=== PATIENT | male | born 1975 | race Caucasian/White ===

== ENCOUNTER 2021-01-17 04:04 | Emergency (ER) | payer MEDICAID, OTHER ==
[2021-01-17] MEDS ORDERED: GI Cocktail Oral Solution 30 ML PO ONE (04:32)
[2021-01-17] MEDS ORDERED: Alum Hydrox/Mag Hydrox/Simeth 30 ML, Lidocaine 2% 15 ML PO ONE ×2 (04:35)
--- NOTE | 2021-01-17 05:02 | EDM.PDOC ---
ED HPI GENERAL MEDICAL PROBLEM - General Chief Complaint: Abdominal Pain Stated Complaint: epigastric pain Time Seen by Provider: 01/17/21 04:45 Source of Information: Reports: Patient History Limitations: Reports: No Limitations - History of Present Illness INITIAL COMMENTS - FREE TEXT/NARRATIVE: This patient is a 46 year old male that presents to the ER. Patient reports that at about 3:30am waking up with some epigastric pain. He reports burning in nature. He reports that he has had this before and its usually his anxiety. He reports he got up from bed and tried to relax, but the epigastric burning was still present. Patient reports that he ate a large meal before bed with chicken and potato salad. Patient reports he also drinks hard liquor like Vodka and others about4-5 days a week and at least a pint each day he drinks. Patient reports he has a history of sleep apnea and uses his apnea machine to sleep each night. Patient denies anderson, dizziness, n, v, d, f, cough, congestion, drainage, shortness of breath, urinary/bowel changes, back pain. Patent denies cardiac history. Patient reports he just moved to [facility] from [place]. Onset: Today Onset Date: 01/17/21 Onset Time: 03:30 Location: Reports: Chest, Abdomen Quality: Reports: Burning Severity: Moderate Improves with: Reports: None Worsens with: Reports: None Associated Symptoms: Reports: Chest Pain. Denies: Confusion, Cough, cough w sputum, Diaphoresis, Fever/Chills, Headaches, Loss of Appetite, Malaise, Nausea/Vomiting, Rash, Seizure, Shortness of Breath, Syncope, Weakness Upper Abdomen Pain Score (Numeric/FACES): 4 - Related Data Allergies Allergy/AdvReac Type Severity Reaction Status Date / Time Penicillins Allergy Hives Verified 01/17/21 04:09 Home Meds: Home Meds Citalopram [Citalopram HBr] 20 mg PO DAILY 01/17/21 [History] Omeprazole 40 mg PO TENZIN #14 capsule. 01/17/21 [Rx] Pantoprazole [ProTONIX] 40 mg PO DAILY 01/17/21 [History] allopurinoL [Zyloprim] 200 mg PO DAILY 01/17/21 [History] lisinopriL [Lisinopril] 20 mg PO DAILY 01/17/21 [History] Past Medical History Cardiovascular History: Reports: Hypertension Gastrointestinal History: Reports: GERD Musculoskeletal History: Reports: Gout Psychiatric History: Reports: Anxiety Endocrine/Metabolic History: Reports: Hypothyroidism - Past Surgical History GI Surgical History: Reports: Hernia, Abdominal, Hernia, Inguinal Male Surgical History: Reports: Vasectomy Social & Family History - Family History Family Medical History: No Pertinent Family History - Tobacco Use Tobacco Use Status *Q: Never Tobacco User - Caffeine Use Caffeine Use: Reports: None - Alcohol Use Days Per Week of Alcohol Use: 4 Number of Drinks Per Day: 10 Total Drinks Per Week: 40 - Recreational Drug Use Recreational Drug Use: No ED ROS GENERAL - Review of Systems Review Of Systems: See Below Constitutional: Reports: No Symptoms HEENT: Reports: No Symptoms Respiratory: Reports: No Symptoms Cardiovascular: Reports: Chest Pain (burning sensation radiation from epigastric to central chest). Denies: Dyspnea on Exertion, Edema, Lightheadedness, Palpitations, Syncope Endocrine: Reports: No Symptoms GI/Abdominal: Reports: Abdominal Pain (burning sensation in epigsatric that radiates up central chest). Denies: Nausea, Vomiting : Reports: No Symptoms Musculoskeletal: Reports: No Symptoms Skin: Reports: No Symptoms Neurological: Reports: No Symptoms Psychiatric: Reports: No Symptoms Hematologic/Lymphatic: Reports: No Symptoms Immunologic: Reports: No Symptoms ED EXAM, GI/ABD - Physical Exam Exam: See Below Exam Limited By: No Limitations General Appearance: Alert, WD/WN, No Apparent Distress, Obese (obese, with short/obese neck stature. ) Eyes: Bilateral: Normal Appearance Ears: Normal External Exam, Normal Canal, Hearing Grossly Normal, Normal TMs Nose: Normal Inspection, Normal Mucosa, No Blood Throat/Mouth: Normal Inspection, Normal Lips, Normal Teeth, Normal Gums, Normal Oropharynx, Normal Voice, No Airway Compromise Head: Atraumatic, Normocephalic Neck: Normal Inspection, Supple, Non-Tender, Full Range of Motion Respiratory/Chest: No Respiratory Distress, Lungs Clear, Normal Breath Sounds, No Accessory Muscle Use, Chest Non-Tender Cardiovascular: Normal Peripheral Pulses, Regular Rate, Rhythm, No Edema, No Gal lop, No JVD, No Murmur, No Rub GI/Abdominal Exam: Normal Bowel Sounds, Soft, Tender (epigastric tenderness makes burning worse per patient. ), Other (Unable to identify organs and abominal landmarks due to obesity) Extremities: Normal Inspection, Non-Tender, No Pedal Edema, Normal Capillary Refill Neurological: Alert, Oriented, Normal Cognition, No Motor/Sensory Deficits Psychiatric: Normal Affect, Normal Mood Skin Exam: Warm, Dry, Intact, Normal Color, No Rash Lymphatic: No Adenopathy #1 Interpretation EKG Date: 01/17/21 Time: 05:06 Rate (Beats/Min): 96 Comparison: NA - No Prior EKG EKG Interpretation Comments: EKG attempted multiple times by RN. Near unreadable EKG. Best EKG can read leads V4, V5, V6. From what I can see, I do not see an ST Elevation Stemi. #2 Interpretation EKG Date: 01/17/21 Time: 05:29 Rhythm: NSR Rate (Beats/Min): 92 ST-T: Normal EKG Interpretation Comments: Repeated EKG, better quality. No stemi. Course - Vital Signs Last Recorded V/S: Last Vital Signs Temp 96.8 F L 01/17/21 04:06 Pulse 108 H 01/17/21 04:06 Resp 18 01/17/21 04:06 BP 126/76 01/17/21 04:06 Pulse Ox 96 01/17/21 04:06 - Orders/Labs/Meds Orders: Active Orders 24 hr Category Date Time Status EKG Documentation Completion [RC] STAT Care 01/17/21 04:54 Active Abdomen Pelvis wo Cont [CT] Stat Exams 01/17/21 05:33 Taken Chest 1V Frontal [CR] Stat Exams 01/17/21 05:21 Taken Sodium Chloride 0.9% [Normal Saline] 1,000 ml Med 01/17/21 07:35 Active IV ASDIRECTED Medication Orders Sodium Chloride (Normal Saline) 1,000 mls @ 150 mls/hr IV ASDIRECTED ACOSTA Last Admin: 01/17/21 08:03 Dose: 150 mls/hr Documented by: JENNIFER Labs: Laboratory Tests 01/17/21 01/17/21 01/17/21 Range/Units 05:05 05:05 05:05 WBC 13.6 H (5.0-10.0) 10^3/uL RBC 4.31 L (4.50-6.00) 10^6/uL Hgb 13.9 L (14.0-18.0) g/dL Hct 41.7 (40.0-54.0) % MCV 96.8 H (82.0-94.0) fL MCH 32.3 H (27.0-32.0) pg MCHC 33.3 (33.0-38.0) g/dL RDW Coeff of Erica 15.8 H (11.0-15.0) % Plt Count 204 (150-400) 10^3/uL Neut % (Auto) 77.9 (35-85) % Lymph % (Auto) 10.5 (10-55) % [place] % (Auto) 10.5 (0-16) % Eos % (Auto) 0.7 (0-5) % Baso % (Auto) 0.4 (0-3) % Neut # (Auto) 10.57 H (1.80-7.00) 10^3/uL Lymph # (Auto) 1.43 (1.00-4.80) 10^3/uL [place] # (Auto) 1.43 H (0.00-0.80) 10^3/uL Eos # (Auto) 0.09 (0.00-0.45) 10^3/uL Baso # (Auto) 0.06 10^3/uL PT 11.9 (9.7-12.3) SEC INR 1.10 (0.92-1.18) Sodium 137 (136-145) mEq/L Potassium 4.1 (3.5-5.0) mEq/L Chloride 97 L (98-106) mEq/L Carbon Dioxide 26 (21-32) mmol/L BUN 16 (7-18) mg/dL Creatinine 1.8 H (0.7-1.3) mg/dL Est Cr Clr Drug Dosing 57.48 mL/min Estimated GFR (MDRD) 41 L (>=60) mL/min Glucose 137 H (75-99) mg/dL Calcium 8.5 (8.4-10.1) mg/dL Total Bilirubin 0.8 (0.0-1.0) mg/dL AST 91 H (15-37) U/L ALT 134 H (12-78) U/L Alkaline Phosphatase 95 (46-116) U/L Lactate Dehydrogenase 233 H (100-190) U/L Creatine Kinase 992 H (35-232) U/L Troponin I < 0.017 (0.00-0.06) ng/mL Total Protein 7.9 (6.4-8.2) g/dL Albumin 3.5 (3.4-5.0) g/dL Amylase 44 (25-115) U/L Lipase 60 L (73-393) U/L Urine Color (YELLOW) Urine Appearance (CLEAR) Urine pH (4.5-8.0) Ur Specific [place] (1.003-1.020) Urine Protein (NEGATIVE) mg/dL Urine Glucose (UA) (NEGATIVE) mg/dL Urine Ketones (NEGATIVE) mg/dL Urine Occult Blood (NEGATIVE) Urine Nitrite (NEGATIVE) Urine Bilirubin (NEGATIVE) Urine Urobilinogen (0.2-1.0) EU/dL Ur Leukocyte Esterase (NEGATIVE) U Hyaline Cast (Auto) (NOT SEEN) /LPF Urine RBC (0-5) /HPF Urine WBC (0-5) /HPF Ur Epithelial Cells (NOT SEEN) /HPF Amorphous Sediment (NOT SEEN) /HPF Urine Bacteria (NOT SEEN) /HPF Granular Casts (Auto) (NOT SEEN) /LPF 01/17/21 01/17/21 01/17/21 Range/Units 05:16 09:00 09:00 WBC 10.4 H (5.0-10.0) 10^3/uL RBC 3.97 L (4.50-6.00) 10^6/uL Hgb 12.8 L (14.0-18.0) g/dL Hct 38.8 L (40.0-54.0) % MCV 97.7 H (82.0-94.0) fL MCH 32.2 H (27.0-32.0) pg MCHC 33.0 (33.0-38.0) g/dL RDW Coeff of Erica 15.9 H (11.0-15.0) % Plt Count 177 (150-400) 10^3/uL Neut % (Auto) 72.4 (35-85) % Lymph % (Auto) 16.3 (10-55) % [place] % (Auto) 9.8 (0-16) % Eos % (Auto) 1.0 (0-5) % Baso % (Auto) 0.5 (0-3) % Neut # (Auto) 7.57 H (1.80-7.00) 10^3/uL Lymph # (Auto) 1.70 (1.00-4.80) 10^3/uL [place] # (Auto) 1.02 H (0.00-0.80) 10^3/uL Eos # (Auto) 0.10 (0.00-0.45) 10^3/uL Baso # (Auto) 0.05 10^3/uL PT (9.7-12.3) SEC INR (0.92-1.18) Sodium 139 (136-145) mEq/L Potassium 4.0 (3.5-5.0) mEq/L Chloride 101 (98-106) mEq/L Carbon Dioxide 26 (21-32) mmol/L BUN 15 (7-18) mg/dL Creatinine 1.5 H (0.7-1.3) mg/dL Est Cr Clr Drug Dosing 68.98 mL/min Estimated GFR (MDRD) 51 L (>=60) mL/min Glucose 153 H (75-99) mg/dL Calcium 7.8 L (8.4-10.1) mg/dL Total Bilirubin (0.0-1.0) mg/dL AST (15-37) U/L ALT (12-78) U/L Alkaline Phosphatase (46-116) U/L Lactate Dehydrogenase (100-190) U/L Creatine Kinase (35-232) U/L Troponin I 0.019 (0.00-0.06) ng/mL Total Protein (6.4-8.2) g/dL Albumin (3.4-5.0) g/dL Amylase (25-115) U/L Lipase (73-393) U/L Urine Color Dark yellow (YELLOW) Urine Appearance Clear (CLEAR) Urine pH 5.0 (4.5-8.0) Ur Specific [place] >= 1.030 H (1.003-1.020) Urine Protein >=300 H (NEGATIVE) mg/dL Urine Glucose (UA) Negative (NEGATIVE) mg/dL Urine Ketones Trace H (NEGATIVE) mg/dL Urine Occult Blood Small H (NEGATIVE) Urine Nitrite Negative (NEGATIVE) Urine Bilirubin Small H (NEGATIVE) Urine Urobilinogen 0.2 (0.2-1.0) EU/dL Ur Leukocyte Esterase Negative (NEGATIVE) U Hyaline Cast (Auto) Moderate H (NOT SEEN) /LPF Urine RBC 0-5 (0-5) /HPF Urine WBC Not seen (0-5) /HPF Ur Epithelial Cells Few H (NOT SEEN) /HPF Amorphous Sediment Few H (NOT SEEN) /HPF Urine Bacteria Few H (NOT SEEN) /HPF Granular Casts (Auto) Few (NOT SEEN) /LPF Meds: Medications Generic Name Dose Route Start Last Admin Trade Name Freq PRN Reason Stop Dose Admin Sodium Chloride 1,000 mls @ 150 mls/hr 01/17/21 07:35 01/17/21 08:03 Normal Saline IV 150 mls/hr ASDIRECTED ACOSTA Administration Discontinued Medications Generic Name Dose Route Start Last Admin Trade Name Freq PRN Reason Stop Dose Admin Al Hydroxide/Mg Hydroxide 30 ml 01/17/21 04:32 01/17/21 06:45 Gi Cocktail Oral Solution 30 Ml PO 01/17/21 04:33 Not Given ONETIME ONE Al Hydroxide/Mg Hydroxide 30 0 ml 01/17/21 04:35 01/17/21 04:38 ml/ Lidocaine HCl 15 ml PO 01/17/21 04:36 45 ml ONETIME ONE Administration Famotidine 20 mg 01/17/21 05:28 01/17/21 05:46 Famotidine 20 Mg/2 Ml Sdv IVPUSH 01/17/21 05:29 20 mg ONETIME ONE Administration Sodium Chloride 1,000 mls @ 1,000 mls/hr 01/17/21 05:28 01/17/21 05:58 Normal Saline IV 01/17/21 06:27 1,000 mls/hr .BOLUS ONE Administration Sodium Chloride 1,000 mls @ 1,000 mls/hr 01/17/21 06:35 01/17/21 06:53 Normal Saline IV 01/17/21 07:34 1,000 mls/hr .BOLUS ONE Administration - Radiology Interpretation Free Text/Narrative:: CXR: No acute findings CT ABD/PELVIS without contrast: Hepatosplenomegaly, otherwise unremarkable. CT Results Date: 01/17/21 CT Results Time: 09:13 - Re-Assessments/Exams Free Text/Narrative Re-Assessment/Exam: 01/17/21 05:34 Patient was given GI Cocktail, he reports he pain did improve and now only a 2/10. Discussed all lab results with patient. Will CT abd/pelvis without contrast due to CR. Will extend ER, repeat troponin and CR, CBC this morning after fluids. 01/17/21 09:27 Patient reports his epigastric pain is much improved. Reviewed patient labs, his wbc has improved. His CR is also improved to 1.5. Patient not vomiting. Will discharge home, encourage to drink fluids, stop drinking ETOH. Will also prescribe omeprazole for epigastric burning and his ETOH use. Recommended he followup with pcp in clinic for possible EGD as needed. Departure - Departure Time of Disposition: 09:30 Disposition: Home, Self-Care 01 Condition: Good Clinical Impression: Renal insufficiency Abdominal pain Qualifiers: Abdominal location: epigastric Qualified Code(s): R10.13 - Epigastric pain - Discharge Information *PRESCRIPTION DRUG MONITORING PROGRAM REVIEWED*: Not Applicable *COPY OF PRESCRIPTION DRUG MONITORING REPORT IN PATIENT CALLI: Not Applicable Prescriptions: Omeprazole 40 mg PO QAM #14 capsule. Instructions: Abdominal Pain, Adult, [id number], Dehydration, Adult, [id number] Referrals: PCP,None [Primary Care Provider] - Forms: ED Department Discharge Additional Instructions: Followup with a primary care provider Return to the ER for worsening of condition or any emergent concerns Followup with a primary care provider for possible EGD if symptoms reoccur Omeprazole 40mg 1 pill once a day #14 no refill: Sent to [facility] Increase fluid intake Eliminate drinking alcohol Sepsis Event Note (ED) - Evaluation Sepsis Screening Result: No Definite Risk - Focused Exam Vital Signs: Vital Signs Temp Pulse Resp BP Pulse Ox 01/17/21 04:06 96.8 F L 108 H 18 126/76 96 - My Orders Last 24 Hours: My Active Orders 01/17/21 04:54 EKG Documentation Completion [RC] STAT 01/17/21 05:21 Chest 1V Frontal [CR] Stat 01/17/21 05:33 Abdomen Pelvis wo Cont [CT] Stat 01/17/21 07:35 Sodium Chloride 0.9% [Normal Saline] 1,000 ml IV ASDIRECTED - Assessment/Plan Last 24 Hours: My Active Orders 01/17/21 04:54 EKG Documentation Completion [RC] STAT 01/17/21 05:21 Chest 1V Frontal [CR] Stat 01/17/21 05:33 Abdomen Pelvis wo Cont [CT] Stat 01/17/21 07:35 Sodium Chloride 0.9% [Normal Saline] 1,000 ml IV ASDIRECTED Plan: PLEASE SEE RN NOTE FOR PFSH
[2021-01-17 05:25] LABS: CHLORIDE,CL 97 mEq/L (98-106); SODIUM,NA 137 mEq/L (136-145)
[2021-01-17] MEDS ORDERED: Famotidine 20 MG/2 ML SDV IVPUSH ONE (05:28)
[2021-01-17] MEDS ORDERED: Sodium Chloride 0.9% 1,000 ML IV ONE ×2 (05:28→06:35)
[2021-01-17] MEDS ORDERED: Sodium Chloride 0.9% 1,000 ML IV SCH (07:35)
== END 2021-01-17 09:50 | disposition home or self-care (01) ==
LOC: CC.ED 04:04
DX: R10.13 Epigastric pain (principal); N28.9 Disorder of kidney and ureter, unspecified; K21.9 Gastro-esophageal reflux disease without esophagitis; Z88.0 Allergy status to penicillin; Z79.899 Other long term (current) drug therapy
CPT/HCPCS: 36415; 71045; 74176; 80048; 80053; 81001; 82150; 82550; 83615; 83690; 84484; 85025; 85610; 93005; 96374; 99284; A9270; J3490; J7030

== ENCOUNTER 2021-03-09 01:07 | Emergency (ER) | payer SELFPAY ==
--- NOTE | 2021-03-09 01:47 | EDM.PDOC ---
ED HPI GENERAL MEDICAL PROBLEM - General Chief Complaint: General Stated Complaint: "dont feel good" Time Seen by Provider: 03/09/21 01:40 Source of Information: Reports: Patient History Limitations: Reports: No Limitations - History of Present Illness INITIAL COMMENTS - FREE TEXT/NARRATIVE: Pt states that he hasn't felt well for the last 3-4 days with mid epigastric discomfort. He admits to drinking at least 6 shots of vodka with a chaser this evening. Has been taking omeprazole OTC daily as he moved here from [place] several months ago and hasn't established care locally as he has no insurance. He had this back in December and was seen in the ER for it. He is out of his pantoprazole for some time now. Points to upper abdomen as site of discomfort. Onset: Gradual Duration: Waxing/Waning Location: Reports: Abdomen Quality: Reports: Ache Associated Symptoms: Denies: Chest Pain, Nausea/Vomiting, Shortness of Breath - Related Data Allergies Allergy/AdvReac Type Severity Reaction Status Date / Time Penicillins Allergy Hives Verified 03/09/21 01:09 Home Meds: Home Meds Citalopram [Citalopram HBr] 20 mg PO DAILY 01/17/21 [History] Omeprazole 40 mg PO QAVidal #14 capsule. 01/17/21 [Rx] Pantoprazole [ProTONIX] 40 mg PO DAILY 01/17/21 [History] allopurinoL [Zyloprim] 200 mg PO DAILY 01/17/21 [History] lisinopriL [Lisinopril] 20 mg PO DAILY 01/17/21 [History] Past Medical History Cardiovascular History: Reports: Hypertension Gastrointestinal History: Reports: GERD Musculoskeletal History: Reports: Gout Psychiatric History: Reports: Anxiety Endocrine/Metabolic History: Reports: Hypothyroidism - Past Surgical History GI Surgical History: Reports: Hernia, Abdominal, Hernia, Inguinal Male Surgical History: Reports: Vasectomy Social & Family History - Family History Family Medical History: No Pertinent Family History - Tobacco Use Tobacco Use Status *Q: Never Tobacco User - Caffeine Use Caffeine Use: Reports: Soda - Recreational Drug Use Recreational Drug Use: No ED ROS GENERAL - Review of Systems Review Of Systems: See Below Constitutional: Denies: Fever, Chills, Weakness HEENT: Reports: No Symptoms Respiratory: Denies: Shortness of Breath Cardiovascular: Reports: No Symptoms GI/Abdominal: Reports: Abdominal Pain, Other (heart burn). Denies: Constipation, Diarrhea, Nausea, Vomiting : Reports: No Symptoms Musculoskeletal: Reports: No Symptoms Skin: Reports: No Symptoms Neurological: Reports: No Symptoms Psychiatric: Reports: No Symptoms ED EXAM, GENERAL - Physical Exam Exam: See Below Exam Limited By: No Limitations General Appearance: Alert, WD/WN, Mild Distress Respiratory/Chest: No Respiratory Distress, Lungs Clear, Normal Breath Sounds Cardiovascular: Regular Rate, Rhythm, No Edema GI/Abdominal: Normal Bowel Sounds, Soft, Tender (midepigastric area with palpation.) Extremities: Normal Inspection Neurological: Alert, Oriented Skin Exam: Warm, Dry, Intact #1 Interpretation EKG Date: 03/09/21 Rhythm: NSR P-Wave: Present QRS: Normal ST-T: Normal Course - Vital Signs Last Recorded V/S: Last Vital Signs Temp 98.2 F 03/09/21 01:10 Pulse 100 03/09/21 01:10 Resp 18 03/09/21 01:10 BP 163/90 H 03/09/21 01:10 Pulse Ox 97 03/09/21 01:10 - Orders/Labs/Meds Orders: Active Orders 24 hr Category Date Time Status EKG 12 Lead [EK] Stat Ther 03/09/21 01:47 Ordered Labs: Laboratory Tests 03/09/21 03/09/21 03/09/21 Range/Units 01:22 01:22 01:22 WBC 6.9 (4.0-11.0) 10^3/uL RBC 4.37 L (4.50-6.00) x10^6/uL Hgb 14.1 (14.0-18.0) g/dL Hct 42.1 (42.0-52.0) % MCV 96.3 (83.0-97.0) fL MCH 32.3 H (27.0-32.0) pg MCHC 33.5 (32.0-36.0) g/dL RDW Coeff of Erica 14.5 (11.0-15.0) % Plt Count 199 (150-400) 10^3/uL Immature Gran % (Auto) 0.3 (0.0-4.9) % Neut % (Auto) 68.9 (41-71) % Lymph % (Auto) 20.3 L (24-44) % [place] % (Auto) 8.1 (0-10) % Eos % (Auto) 2.0 (0-6) % Baso % (Auto) 0.4 (0-1) % Neut # (Auto) 4.74 (1.80-8.00) x10^3/uL Lymph # (Auto) 1.40 (0.60-5.00) 10^3/uL [place] # (Auto) 0.56 (0.00-1.50) 10^3/uL Eos # (Auto) 0.14 (0.00-1.50) 10^3/uL Baso # (Auto) 0.03 (0.00-0.50) 10^3/uL Immature Gran # (Auto) 0.02 (0.00-0.49) 10^3/uL Sodium 141 (136-145) mEq/L Potassium 3.9 (3.5-5.0) mEq/L Chloride 101 (98-106) mEq/L Carbon Dioxide 29 (21-32) mmol/L BUN 3 L D (7-18) mg/dL Creatinine 1.2 (0.7-1.3) mg/dL Est Cr Clr Drug Dosing 88.78 mL/min Estimated GFR (MDRD) > 60 (>=60) mL/min Glucose 154 H (75-99) mg/dL Calcium 8.3 L (8.4-10.1) mg/dL Total Bilirubin 0.5 (0.0-1.0) mg/dL AST 170 H (15-37) U/L ALT 215 H (12-78) U/L Alkaline Phosphatase 85 (46-116) U/L Lactate Dehydrogenase (100-190) U/L Creatine Kinase (35-232) U/L Troponin I (0.00-0.06) ng/mL Total Protein 7.2 (6.4-8.2) g/dL Albumin 3.1 L (3.4-5.0) g/dL Urine Color Yellow (YELLOW) Urine Appearance Clear (CLEAR) Urine pH 6.5 (4.5-8.0) Ur Specific [place] 1.010 (1.003-1.020) Urine Protein Negative (NEGATIVE) mg/dL Urine Glucose (UA) Negative (NEGATIVE) mg/dL Urine Ketones Negative (NEGATIVE) mg/dL Urine Occult Blood Trace-intact H (NEGATIVE) Urine Nitrite Negative (NEGATIVE) Urine Bilirubin Negative (NEGATIVE) Urine Urobilinogen 0.2 (0.2-1.0) EU/dL Ur Leukocyte Esterase Negative (NEGATIVE) Urine RBC 0-5 (0-5) /HPF Urine WBC 0-5 (0-5) /HPF Ur Squamous Epith Cells Few H (NOT SEEN) /HPF 03/09/21 Range/Units 01:47 WBC (4.0-11.0) 10^3/uL RBC (4.50-6.00) x10^6/uL Hgb (14.0-18.0) g/dL Hct (42.0-52.0) % MCV (83.0-97.0) fL MCH (27.0-32.0) pg MCHC (32.0-36.0) g/dL RDW Coeff of Erica (11.0-15.0) % Plt Count (150-400) 10^3/uL Immature Gran % (Auto) (0.0-4.9) % Neut % (Auto) (41-71) % Lymph % (Auto) (24-44) % [place] % (Auto) (0-10) % Eos % (Auto) (0-6) % Baso % (Auto) (0-1) % Neut # (Auto) (1.80-8.00) x10^3/uL Lymph # (Auto) (0.60-5.00) 10^3/uL [place] # (Auto) (0.00-1.50) 10^3/uL Eos # (Auto) (0.00-1.50) 10^3/uL Baso # (Auto) (0.00-0.50) 10^3/uL Immature Gran # (Auto) (0.00-0.49) 10^3/uL Sodium (136-145) mEq/L Potassium (3.5-5.0) mEq/L Chloride (98-106) mEq/L Carbon Dioxide (21-32) mmol/L BUN (7-18) mg/dL Creatinine (0.7-1.3) mg/dL Est Cr Clr Drug Dosing mL/min Estimated GFR (MDRD) (>=60) mL/min Glucose (75-99) mg/dL Calcium (8.4-10.1) mg/dL Total Bilirubin (0.0-1.0) mg/dL AST (15-37) U/L ALT (12-78) U/L Alkaline Phosphatase (46-116) U/L Lactate Dehydrogenase 269 H (100-190) U/L Creatine Kinase 169 (35-232) U/L Troponin I 0.021 (0.00-0.06) ng/mL Total Protein (6.4-8.2) g/dL Albumin (3.4-5.0) g/dL Urine Color (YELLOW) Urine Appearance (CLEAR) Urine pH (4.5-8.0) Ur Specific [place] (1.003-1.020) Urine Protein (NEGATIVE) mg/dL Urine Glucose (UA) (NEGATIVE) mg/dL Urine Ketones (NEGATIVE) mg/dL Urine Occult Blood (NEGATIVE) Urine Nitrite (NEGATIVE) Urine Bilirubin (NEGATIVE) Urine Urobilinogen (0.2-1.0) EU/dL Ur Leukocyte Esterase (NEGATIVE) Urine RBC (0-5) /HPF Urine WBC (0-5) /HPF Ur Squamous Epith Cells (NOT SEEN) /HPF Meds: Medications Discontinued Medications Generic Name Dose Route Start Last Admin Trade Name Freq PRN Reason Stop Dose Admin Al Hydroxide/Mg Hydroxide 30 0 ml 03/09/21 02:00 03/09/21 02:10 ml/ Lidocaine HCl 15 ml PO 03/09/21 02:01 45 ml ONETIME ONE Administration - Re-Assessments/Exams Free Text/Narrative Re-Assessment/Exam: 03/09/21 02:37 Reviewed labs with pt. LFT are elevated and he states that they have in the past with his alcohol use. He reports that he has had an EGD many years ago and had some burning of the esophagus from the reflux. He has had some relief from the GI cocktail. Discussed that he needs to establish care somewhere and probably needs to have repeat EGD in the future. Departure - Departure Time of Disposition: 02:41 Disposition: Home, Self-Care 01 Condition: Fair Clinical Impression: Chronic GERD - Discharge Information *PRESCRIPTION DRUG MONITORING PROGRAM REVIEWED*: Not Applicable *COPY OF PRESCRIPTION DRUG MONITORING REPORT IN PATIENT CALLI: Not Applicable Forms: ED Department Discharge Additional Instructions: Take protonix in the AM Try omeprazole 20 mg twice a day until can establish care and get refills avoid alcohol and any spicy foods weight reduction may help with the refluxing recheck in the clinic if not improving or new concerns. Sepsis Event Note (ED) - Evaluation Sepsis Screening Result: No Definite Risk - Focused Exam Vital Signs: Vital Signs Temp Pulse Resp BP Pulse Ox 03/09/21 01:10 98.2 F 100 18 163/90 H 97 - Problem List & Annotations (1) Chronic GERD SNOMED Code(s): 169396582, 922697225 Code(s): K21.9 - GASTRO-ESOPHAGEAL REFLUX DISEASE WITHOUT ESOPHAGITIS Status: Acute Priority: High Current Visit: Yes (2) Abdominal pain SNOMED Code(s): 78463992 Code(s): R10.9 - UNSPECIFIED ABDOMINAL PAIN Status: Acute Priority: High Current Visit: No Qualifiers: Abdominal location: epigastric Qualified Code(s): R10.13 - Epigastric pain - Problem List Review Problem List Initiated/Reviewed/Updated: Yes - My Orders Last 24 Hours: My Active Orders 03/09/21 01:47 EKG 12 Lead [EK] Stat - Assessment/Plan Last 24 Hours: My Active Orders 03/09/21 01:47 EKG 12 Lead [EK] Stat
[2021-03-09 01:56] LABS: CHLORIDE,CL 101 mEq/L (98-106); SODIUM,NA 141 mEq/L (136-145)
[2021-03-09] MEDS ORDERED: Alum Hydrox/Mag Hydrox/Simeth 30 ML, Lidocaine 2% 15 ML PO ONE ×2 (02:00)
[2021-03-09] MEDS ORDERED: Pantoprazole 40 MG Tab.CR PO ONE (02:44)
[2021-03-09] MEDS ORDERED: Pantoprazole 40 MG Tab.CR ONE (03:11)
== END 2021-03-09 02:55 | disposition home or self-care (01) ==
LOC: CC.ED 01:07
DX: K21.9 Gastro-esophageal reflux disease without esophagitis (principal); I10 Essential (primary) hypertension; E03.9 Hypothyroidism, unspecified; M10.9 Gout, unspecified; Z79.899 Other long term (current) drug therapy; Z88.0 Allergy status to penicillin
CPT/HCPCS: 36415; 80053; 81001; 82550; 83615; 84484; 85025; 99284; A9270; 93005

== ENCOUNTER 2021-03-26 05:18 | Emergency (ER) | payer SELFPAY ==
[2021-03-26 06:04] LABS: CHLORIDE,CL 99 mEq/L (98-106); SODIUM,NA 138 mEq/L (136-145)
--- NOTE | 2021-03-26 06:05 | EDM.PDOC ---
ED HPI GENERAL MEDICAL PROBLEM - General Chief Complaint: General Stated Complaint: Abd Pain Time Seen by Provider: 03/26/21 05:50 Source of Information: Reports: Patient History Limitations: Reports: No Limitations - History of Present Illness INITIAL COMMENTS - FREE TEXT/NARRATIVE: presents to ER with complaints of lateral right sided pain that is worse when he moves, sits or twists. When he sits down the pain is worse. When he sits still the pain is better. He has not been taking his BP meds and is concerned he has liver problem as he drinks multiple shots of vodka per day. Last alcohol intack was at 2100 last evening. He relates that he just hasn't gotten around to picking his BP meds up yet. He denies any nausea with it. Onset: Gradual Location: Reports: Abdomen Associated Symptoms: Denies: Fever/Chills, Nausea/Vomiting Right Abdomen Pain Score (Numeric/FACES): 6 - Related Data Allergies Allergy/AdvReac Type Severity Reaction Status Date / Time Penicillins Allergy Hives Verified 03/26/21 05:19 Home Meds: Home Meds Omeprazole 40 mg PO QAM #14 capsule. 01/17/21 [Rx] Past Medical History Cardiovascular History: Reports: Hypertension Gastrointestinal History: Reports: GERD Musculoskeletal History: Reports: Gout Psychiatric History: Reports: Anxiety Endocrine/Metabolic History: Reports: Hypothyroidism - Past Surgical History GI Surgical History: Reports: Hernia, Abdominal, Hernia, Inguinal Male Surgical History: Reports: Vasectomy Social & Family History - Family History Family Medical History: No Pertinent Family History - Tobacco Use Tobacco Use Status *Q: Never Tobacco User Second Hand Smoke Exposure: No - Caffeine Use Caffeine Use: Reports: Soda - Alcohol Use Days Per Week of Alcohol Use: 7 Number of Drinks Per Day: 6 Total Drinks Per Week: 42 - Recreational Drug Use Recreational Drug Use: No ED ROS GENERAL - Review of Systems Review Of Systems: See Below Constitutional: Denies: Fever, Chills Respiratory: Reports: No Symptoms Cardiovascular: Reports: No Symptoms GI/Abdominal: Reports: Abdominal Pain. Denies: Black Stool, Constipation, Diarrhea Skin: Reports: Other (has multiple sores all over hs abdomen, and arms. 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 Pain is worse with movement and stretching to the left. He also states that when he sits the pain is more up under the rib cage.) Neurological: Alert, Oriented Skin Exam: Warm, Dry Course - Vital Signs Last Recorded V/S: Last Vital Signs Temp 98 F 03/26/21 05:21 Pulse 98 03/26/21 05:21 Resp 18 03/26/21 05:21 BP 157/97 H 03/26/21 06:58 Pulse Ox 20 L 03/26/21 05:21 - Orders/Labs/Meds Orders: Active Orders 24 hr Category Date Time Status Abdomen Pelvis w Cont [CT] Stat Exams 03/26/21 06:18 Taken Labs: Laboratory Tests 03/26/21 03/26/21 03/26/21 Range/Units 05:48 05:48 05:57 WBC 5.6 (4.0-11.0) 10^3/uL RBC 4.69 (4.50-6.00) x10^6/uL Hgb 15.6 (14.0-18.0) g/dL Hct 45.6 (42.0-52.0) % MCV 97.2 H (83.0-97.0) fL MCH 33.3 H (27.0-32.0) pg MCHC 34.2 (32.0-36.0) g/dL RDW Coeff of Erica 14.5 (11.0-15.0) % Plt Count 226 (150-400) 10^3/uL Immature Gran % (Auto) 0.9 (0.0-4.9) % Neut % (Auto) 71.1 H (41-71) % Lymph % (Auto) 19.8 L (24-44) % [place] % (Auto) 5.9 (0-10) % Eos % (Auto) 1.4 (0-6) % Baso % (Auto) 0.9 (0-1) % Neut # (Auto) 3.99 (1.80-8.00) x10^3/uL Lymph # (Auto) 1.11 (0.60-5.00) 10^3/uL [place] # (Auto) 0.33 (0.00-1.50) 10^3/uL Eos # (Auto) 0.08 (0.00-1.50) 10^3/uL Baso # (Auto) 0.05 (0.00-0.50) 10^3/uL Immature Gran # (Auto) 0.05 (0.00-0.49) 10^3/uL Sodium 138 (136-145) mEq/L Potassium 4.2 (3.5-5.0) mEq/L Chloride 99 (98-106) mEq/L Carbon Dioxide 21 (21-32) mmol/L BUN 8 D (7-18) mg/dL Creatinine 1.1 (0.7-1.3) mg/dL Est Cr Clr Drug Dosing 96.85 mL/min Estimated GFR (MDRD) > 60 (>=60) mL/min Glucose 106 H D (75-99) mg/dL Calcium 8.6 (8.4-10.1) mg/dL Total Bilirubin 0.8 (0.0-1.0) mg/dL AST 159 H (15-37) U/L ALT 140 H (12-78) U/L Alkaline Phosphatase 79 (46-116) U/L Total Protein 8.9 H (6.4-8.2) g/dL Albumin 4.0 (3.4-5.0) g/dL Urine Color Dark yellow (YELLOW) Urine Appearance Clear (CLEAR) Urine pH 6.0 (4.5-8.0) Ur Specific [place] >= 1.030 H (1.003-1.020) Urine Protein >=300 H (NEGATIVE) mg/dL Urine Glucose (UA) Negative (NEGATIVE) mg/dL Urine Ketones >=160 H (NEGATIVE) mg/dL Urine Occult Blood Moderate H (NEGATIVE) Urine Nitrite Negative (NEGATIVE) Urine Bilirubin Moderate H (NEGATIVE) Urine Urobilinogen 0.2 (0.2-1.0) EU/dL Ur Leukocyte Esterase Negative (NEGATIVE) Urine RBC 5-10 H (0-5) /HPF Urine WBC Not seen (0-5) /HPF Amorphous Sediment Few H (NOT SEEN) /HPF Urine Yeast Rare (NOT SEEN) /HPF Urinalysis Comment Meds: Medications Discontinued Medications Generic Name Dose Route Start Last Admin Trade Name Toby PRN Reason Stop Dose Admin Barium Sulfate 900 ml 03/26/21 07:35 03/26/21 08:54 Barium Sulfate Oral Susp 450 Ml Bottle PO 03/26/21 07:36 900 ml ONETIME ONE Administration Clonidine HCl 0.1 mg 03/26/21 08:00 Clonidine 0.1 Mg Tab PO DAILY A[place]STA Clonidine HCl 0.1 mg 03/26/21 06:13 03/26/21 06:17 Clonidine 0.1 Mg Tab PO 03/26/21 06:14 0.1 mg STAT STA Administration Iopamidol 163 ml 03/26/21 07:35 03/26/21 08:54 Iopamidol 755 Mg/Ml 200 Ml Bottle IV 03/26/21 07:36 163 ml ONETIME ONE Administration - Re-Assessments/Exams Free Text/Narrative Re-Assessment/Exam: 03/26/21 06:[address] of abdomen pelvis with contrast to evaluate the abdominal pain. Will get contrasted study. will monitor his BP while waiting. Departure - Departure Time of Disposition: 09:42 Disposition: Home, Self-Care 01 Condition: Good Clinical Impression: Musculoskeletal strain, Fatty liver due to alcoholism - Discharge Information *PRESCRIPTION DRUG MONITORING PROGRAM REVIEWED*: Not Applicable *COPY OF PRESCRIPTION DRUG MONITORING REPORT IN PATIENT CALLI: Not Applicable Instructions: Alcoholic Liver Disease, [id number] Referrals: PCP,None [Primary Care Provider] - Forms: ED Department Discharge Additional Instructions: stop drinking start your BP meds push fluids as much as possible establish care in the clinic with Dr. Tracey for health care. Return to the clinic if pain does not resolve. Sepsis Event Note (ED) - Evaluation Sepsis Screening Result: No Definite Risk - Focused Exam Vital Signs: Vital Signs Temp Pulse Resp BP BP Pulse Ox 03/26/21 06:58 157/97 H 03/26/21 06:17 154/96 H 03/26/21 05:38 155/102 H 03/26/21 05:21 98 F 98 18 160/110 H 20 L - Problem List & Annotations (1) Musculoskeletal strain SNOMED Code(s): 354936681 Code(s): T14.8XXA - OTHER INJURY OF UNSPECIFIED BODY REGION, INITIAL ENCOUNTER Status: Acute Priority: High Current Visit: Yes (2) Fatty liver due to alcoholism SNOMED Code(s): 57274368 Code(s): K70.0 - ALCOHOLIC FATTY LIVER Status: Acute Priority: High Current Visit: Yes - Problem List Review Problem List Initiated/Reviewed/Updated: Yes - My Orders Last 24 Hours: My Active Orders 03/26/21 06:18 Abdomen Pelvis w Cont [CT] Stat - Assessment/Plan Last 24 Hours: My Active Orders 03/26/21 06:18 Abdomen Pelvis w Cont [CT] Stat
[2021-03-26] MEDS ORDERED: cloNIDine 0.1 MG Tab PO STA (06:13)
[2021-03-26] MEDS ORDERED: Iopamidol 755 Mg/ML 200 ML Bottle IV ONE (07:35)
[2021-03-26] MEDS ORDERED: Barium Sulfate Oral Susp 450 ML Bottle PO ONE (07:35)
[2021-03-26] MEDS ORDERED: cloNIDine 0.1 MG Tab PO SCH (08:00)
== END 2021-03-26 09:55 | disposition home or self-care (01) ==
LOC: CC.ED 05:18
DX: S39.011A Strain of muscle, fascia and tendon of abdomen, initial encounter (principal); K70.0 Alcoholic fatty liver; I10 Essential (primary) hypertension; Z88.0 Allergy status to penicillin
CPT/HCPCS: 36415; 74177; 80053; 81001; 85025; 99284-25; A9270-GY; Q9967

== ENCOUNTER 2021-04-11 19:08 | Emergency (ER) | payer SELFPAY ==
--- NOTE | 2021-04-11 19:38 | EDM.PDOC ---
ED HPI GENERAL MEDICAL PROBLEM - General Chief Complaint: Abdominal Pain Stated Complaint: "feel full and tight in upper abdomen" Time Seen by Provider: 04/11/21 19:25 Source of Information: Reports: Patient History Limitations: Reports: No Limitations - History of Present Illness INITIAL COMMENTS - FREE TEXT/NARRATIVE: This patient is a 46 year old male that presents to the ER. Patient reports that at noon today he started having generalized abdominal pain. Patient reports it just feels bloated or like he is pushing on it. The patient reports it also goes to his epigastric area. Patient reports nausea. Patient reports that he has had this pain multiple times before. He reports that usually a GI cocktail will help the pain. Patent reports that he is a heavy drinker. He reports he drinks a lot of shots of vodka a day. Patient reports that he got off work, went home and ate two egg sandwiches, and took shots of vodka this morning. He reports then a noon waking up and having this pain. Patient reports he has never fill his HTN or GI meds. Patent reports he is supposed to take propantazole, but has not filled the script in months. Patient is noncompliant with his medications. Denies v, d, f, cough, congestion, drainage, headache, dizziness, back pain, urinary/bowel changes, fever, rashes. Onset Date: 04/11/21 Onset Time: 12:00 Location: Reports: Chest (epigastric), Abdomen Quality: Reports: Pressure Severity: Mild Improves with: Reports: None Worsens with: Reports: None Associated Symptoms: Reports: Chest Pain (epigastric), Nausea/Vomiting (nausea. Not vomiting.). Denies: Confusion, Cough, cough w sputum, Diaphoresis, Fever/Chills, Headaches, Loss of Appetite, Malaise, Rash, Seizure, Shortness of Breath, Syncope, Weakness - Related Data Allergies Allergy/AdvReac Type Severity Reaction Status Date / Time Penicillins Allergy Hives Verified 04/11/21 19:11 Home Meds: Home Meds Omeprazole 40 mg PO QAM #14 capsule. 01/17/21 [Rx] Past Medical History Cardiovascular History: Reports: Hypertension Gastrointestinal History: Reports: GERD Musculoskeletal History: Reports: Gout Psychiatric History: Reports: Anxiety Endocrine/Metabolic History: Reports: Hypothyroidism - Past Surgical History GI Surgical History: Reports: Hernia, Abdominal, Hernia, Inguinal Male Surgical History: Reports: Vasectomy Social & Family History - Family History Family Medical History: No Pertinent Family History - Tobacco Use Tobacco Use Status *Q: Never Tobacco User - Caffeine Use Caffeine Use: Reports: None - Alcohol Use Days Per Week of Alcohol Use: 7 Number of Drinks Per Day: 5 Total Drinks Per Week: 35 - Recreational Drug Use Recreational Drug Use: No ED ROS GENERAL - Review of Systems Review Of Systems: See Below Constitutional: Reports: No Symptoms HEENT: Reports: No Symptoms Respiratory: Reports: No Symptoms Cardiovascular: Reports: No Symptoms GI/Abdominal: Reports: Abdominal Pain, Nausea. Denies: Diarrhea, Vomiting : Reports: No Symptoms Musculoskeletal: Reports: No Symptoms Skin: Reports: No Symptoms Neurological: Reports: No Symptoms Psychiatric: Reports: No Symptoms Hematologic/Lymphatic: Reports: No Symptoms Immunologic: Reports: No Symptoms ED EXAM, GI/ABD - Physical Exam Exam: See Below Exam Limited By: No Limitations General Appearance: Alert, WD/WN, No Apparent Distress, Obese Eyes: Bilateral: Normal Appearance Ears: Normal External Exam, Normal Canal, Hearing Grossly Normal, Normal TMs Nose: Normal Inspection, Normal Mucosa, No Blood Throat/Mouth: Normal Inspection, Normal Lips, Normal Teeth, Normal Gums, Normal Oropharynx, Normal Voice, No Airway Compromise Head: Atraumatic, Normocephalic Neck: Normal Inspection, Supple, Non-Tender, Full Range of Motion Respiratory/Chest: No Respiratory Distress, Lungs Clear, Normal Breath Sounds, No Accessory Muscle Use, Chest Non-Tender Cardiovascular: Normal Peripheral Pulses, Regular Rate, Rhythm, No Edema, No Gallop, No JVD, No Murmur, No Rub GI/Abdominal Exam: Normal Bowel Sounds, Tender (diffuse, not localized. not acute abdomen.), Other (Patient body habitus makes examination and fnding landmarks diffucult. ). No: Guarding, Rigid, Rebound Back Exam: Normal Inspection, Full Range of Motion. No: CVA Tenderness (L), CVA Tenderness (R) Extremities: Normal Inspection, Normal Range of Motion, Non-Tender, No Pedal Edema, Normal Capillary Refill Neurological: Alert, Oriented, Normal Cognition, Normal Gait, No Motor/Sensory Deficits Psychiatric: Normal Affect, Normal Mood Skin Exam: Warm, Dry, Normal Color, No Rash, Wound/Incision (multiple small wounds on abdomen. healed. Patient reports he picks them. ) Lymphatic: No Adenopathy #1 Interpretation EKG Date: 04/11/21 Time: 20:02 Rhythm: NSR Rate (Beats/Min): 89 [place]: Normal P-Wave: Present QRS: Normal ST-T: Normal QT: Normal Comparison: NA - No Prior EKG Course - Vital Signs Last Recorded V/S: Last Vital Signs Temp 98.7 F 04/11/21 19:09 Pulse 95 04/11/21 19:09 Resp 18 04/11/21 19:09 BP 150/89 H 04/11/21 19:09 Pulse Ox 96 04/11/21 19:09 - Orders/Labs/Meds Orders: Active Orders 24 hr Category Date Time Status Chest 2V [CR] Stat Exams 04/11/21 19:31 Taken Labs: Laboratory Tests 04/11/21 04/11/21 Range/Units 19:35 19:35 WBC 5.5 (4.0-11.0) 10^3/uL RBC 3.93 L (4.50-6.00) x10^6/uL Hgb 13.5 L (14.0-18.0) g/dL Hct 38.3 L (42.0-52.0) % MCV 97.5 H (83.0-97.0) fL MCH 34.4 H (27.0-32.0) pg MCHC 35.2 (32.0-36.0) g/dL RDW Coeff of Erica 14.6 (11.0-15.0) % Plt Count 217 (150-400) 10^3/uL Immature Gran % (Auto) 0.4 (0.0-4.9) % Neut % (Auto) 72.5 H (41-71) % Lymph % (Auto) 14.3 L (24-44) % [place] % (Auto) 10.5 H (0-10) % Eos % (Auto) 1.4 (0-6) % Baso % (Auto) 0.9 (0-1) % Neut # (Auto) 4.02 (1.80-8.00) x10^3/uL Lymph # (Auto) 0.79 (0.60-5.00) 10^3/uL [place] # (Auto) 0.58 (0.00-1.50) 10^3/uL Eos # (Auto) 0.08 (0.00-1.50) 10^3/uL Baso # (Auto) 0.05 (0.00-0.50) 10^3/uL Immature Gran # (Auto) 0.02 (0.00-0.49) 10^3/uL Sodium 140 (136-145) mEq/L Potassium 4.3 (3.5-5.0) mEq/L Chloride 100 (98-106) mEq/L Carbon Dioxide 28 (21-32) mmol/L BUN 7 (7-18) mg/dL Creatinine 1.1 (0.7-1.3) mg/dL Est Cr Clr Drug Dosing 96.85 mL/min Estimated GFR (MDRD) > 60 (>=60) mL/min Glucose 125 H (75-99) mg/dL Calcium 8.5 (8.4-10.1) mg/dL Total Bilirubin 0.8 (0.0-1.0) mg/dL AST 191 H (15-37) U/L ALT 187 H (12-78) U/L Alkaline Phosphatase 87 (46-116) U/L Lactate Dehydrogenase 197 H (100-190) U/L Creatine Kinase 95 (35-232) U/L Troponin I High Sens 22.0 (<=76) pg/mL Total Protein 7.4 (6.4-8.2) g/dL Albumin 3.3 L (3.4-5.0) g/dL Amylase 36 (25-115) U/L Lipase 80 (73-393) U/L Meds: Medications Discontinued Medications Generic Name Dose Route Start Last Admin Trade Name Freq PRN Reason Stop Dose Admin Al Hydroxide/Mg Hydroxide 30 0 ml 04/11/21 19:31 04/11/21 20:21 ml/ Lidocaine HCl 15 ml PO 04/11/21 19:32 45 ml ONETIME ONE Administration - Radiology Interpretation Free Text/Narrative:: CXR: no acute findings - Re-Assessments/Exams Free Text/Narrative Re-Assessment/Exam: 04/11/21 20:57 Patient reports that he does feel better after the GI Cocktail. Patient reports that his pain is nearly resolved. Discussed with patient his labs and exam. Discussed his liver enzymes chronically elevated and his drinking. Patient has no elevated wbc, no fever, no vomiting, and his pain has improved. At this time, will not ct his abd/pelvis. The patient EKG is SR, troponin is negative and his pain is now 9 hours old. Patient is in agreement with no ct and discharge. Educated to be compliant with medications and followup in clinic. He reports he will. Patient is educated to return for pain increase, fever, vomiting, or any other concerns. Departure - Departure Time of Disposition: 21:04 Disposition: Home, Self-Care 01 Condition: Fair Clinical Impression: Abdominal pain Qualifiers: Abdominal location: epigastric Qualified Code(s): R10.13 - Epigastric pain - Discharge Information *PRESCRIPTION DRUG MONITORING PROGRAM REVIEWED*: Not Applicable *COPY OF PRESCRIPTION DRUG MONITORING REPORT IN PATIENT CALLI: Not Applicable Instructions: Abdominal Pain, Adult, [id number] Forms: ED Department Discharge Additional Instructions: Followup with your primary care provider by calling clinic for appointment Return to the ER for worsening of condition or any emergent concerns such as vomiting, fever, increase in pain, or other concerns Decrease alcoholic intake Sepsis Event Note (ED) - Focused Exam Vital Signs: Vital Signs Temp Pulse Resp BP Pulse Ox 04/11/21 19:09 98.7 F 95 18 150/89 H 96 - My Orders Last 24 Hours: My Active Orders 04/11/21 19:31 Chest 2V [CR] Stat - Assessment/Plan Last 24 Hours: My Active Orders 04/11/21 19:31 Chest 2V [CR] Stat Plan: PLEASE SEE RN NOTE FOR PFSH
[2021-04-11] MEDS ORDERED: Lidocaine 2% Viscous Solution 15 ML Cup ONE (19:55)
[2021-04-11 19:56] LABS: CHLORIDE,CL 100 mEq/L (98-106); SODIUM,NA 140 mEq/L (136-145)
[2021-04-11] MEDS: Alum Hydrox/Mag Hydrox/Simeth 30 ML, Lidocaine 2% 15 ML PO ONE ×2 (20:21)
== END 2021-04-11 20:45 | disposition home or self-care (01) ==
LOC: CC.ED 19:08
DX: R10.13 Epigastric pain (principal); K21.9 Gastro-esophageal reflux disease without esophagitis; Z88.0 Allergy status to penicillin; Z79.899 Other long term (current) drug therapy
CPT/HCPCS: 36415; 71046; 80053; 82150; 82550; 83615; 83690; 84484; 85025; 93005; 99284; A9270

== ENCOUNTER 2021-05-14 00:55 | Inpatient (IN) | payer SELFPAY ==
[2021-05-14] MEDS ORDERED: Alum Hydrox/Mag Hydrox/Simeth 30 ML, Lidocaine 2% 15 ML PO ONE ×2 (01:19)
[2021-05-14 01:28] LABS: PTT,PARTIAL THROMBOPLSTIN TIME 23.4 SEC (23.2-32.3)
--- NOTE | 2021-05-14 01:29 | EDM.PDOC ---
ED HPI GENERAL MEDICAL PROBLEM - General Chief Complaint: General Stated Complaint: sweating, shaking, and chest discomfort Time Seen by Provider: 05/14/21 01:08 Source of Information: Reports: Patient, EMS History Limitations: Reports: No Limitations - History of Present Illness INITIAL COMMENTS - FREE TEXT/NARRATIVE: Pt states that he has been having chest pain for about 2 weeks and getting worse. States that it is midsternal and into his epigastric area. He has not had any vodka for about 24 hours as he didn't have any. Day prior to that he drank cough syrup as he didn't have his vodka. He typically drinks at least a liter of vodka straight daily. He states that he has pain in his abdomen and will feel like it vibrates at times. He does feel sweaty and shakey. He has been in the ER on previous episodes and has high BP and doesn't fill his meds. He has not taken his omeprazole for "awhile". Onset: Gradual Duration: Week(s): (2) Location: Reports: Chest, Abdomen Associated Symptoms: Reports: Chest Pain Mid-Anterior Chest Pain Score (Numeric/FACES): 6 - Related Data Allergies Allergy/AdvReac Type Severity Reaction Status Date / Time Penicillins Allergy Hives Verified 05/14/21 01:05 Home Meds: Home Meds Omeprazole 40 mg PO QAM #14 capsule. 01/17/21 [Rx] Past Medical History Cardiovascular History: Reports: Hypertension Gastrointestinal History: Reports: GERD Musculoskeletal History: Reports: Gout Psychiatric History: Reports: Anxiety Endocrine/Metabolic History: Reports: Hypothyroidism - Past Surgical History GI Surgical History: Reports: Hernia, Abdominal, Hernia, Inguinal Male Surgical History: Reports: Vasectomy Social & Family History - Family History Family Medical History: No Pertinent Family History - Caffeine Use Caffeine Use: Reports: None ED ROS GENERAL - Review of Systems Review Of Systems: See Below Constitutional: Reports: Weakness. Denies: Fever, Chills HEENT: Reports: No Symptoms Respiratory: Denies: Shortness of Breath, Cough Cardiovascular: Reports: Chest Pain, Blood Pressure Problem GI/Abdominal: Reports: Abdominal Pain, Anorexia, Diarrhea, Nausea. Denies: Constipation, Melena, Vomiting : Reports: No Symptoms Musculoskeletal: Reports: No Symptoms Skin: Reports: No Symptoms Neurological: Reports: No Symptoms Psychiatric: Reports: No Symptoms ED EXAM, GENERAL - Physical Exam Exam: See Below Exam Limited By: No Limitations General Appearance: Alert, WD/WN, Moderate Distress Ears: Normal External Exam, Normal Canal, Normal TMs Throat/Mouth: Normal Inspection, Normal Oropharynx Head: Atraumatic, Normocephalic Neck: Normal Inspection, Supple, Non-Tender Respiratory/Chest: No Respiratory Distress, Lungs Clear, Normal Breath Sounds, Chest Non-Tender Cardiovascular: Normal Peripheral Pulses, Regular Rate, Rhythm, No Edema Peripheral Pulses: 1+: Dorsalis Pedis (R) GI/Abdominal: Normal Bowel Sounds, Soft, Tender (mid epigastric to upper abdomen. Worse wth palpation.) Back Exam: Normal Inspection Extremities: Normal Range of Motion, No Pedal Edema Neurological: Alert, Oriented Psychiatric: Normal Affect Skin Exam: Warm, Dry, Intact Course - Orders/Labs/Meds Orders: Active Orders 24 hr Category Date Time Status CXR [Chest 1V Frontal] [CR] Stat Exams 05/14/21 01:06 Ordered COMPREHENSIVE METABOLIC PN,CMP [CHEM] Stat Lab 05/14/21 01:15 Received CREATINE KINASE,CK [CHEM] Stat Lab 05/14/21 01:15 Received INR,PT,PROTHROMBIN TIME [COAG] Stat Lab 05/14/21 01:15 Received LACTATE DEHYDROGENASE,LDH [CHEM] Stat Lab 05/14/21 01:15 Received LIPASE [CHEM] Stat Lab 05/14/21 01:15 Received MAGNESIUM [CHEM] Stat Lab 05/14/21 01:15 Received PTT,PARTIAL THROMBOPLSTIN TIME [COAG] Stat Lab 05/14/21 01:15 Received TROPONIN I HIGH SENSITIVITY [CHEM] Stat Lab 05/14/21 01:15 Received Labs: Laboratory Tests 05/14/21 Range/Units 01:07 WBC 3.8 L (4.0-11.0) 10^3/uL RBC 3.96 L (4.50-6.00) x10^6/uL Hgb 14.3 (14.0-18.0) g/dL Hct 40.1 L (42.0-52.0) % MCV 101.3 H (83.0-97.0) fL MCH 36.1 H (27.0-32.0) pg MCHC 35.7 (32.0-36.0) g/dL RDW Coeff of Erica 14.5 (11.0-15.0) % Plt Count 90 L (150-400) 10^3/uL Immature Gran % (Auto) 0.8 (0.0-4.9) % Neut % (Auto) 75.2 H (41-71) % Lymph % (Auto) 12.8 L (24-44) % [place] % (Auto) 10.7 H (0-10) % Eos % (Auto) 0.0 (0-6) % Baso % (Auto) 0.5 (0-1) % Neut # (Auto) 2.88 (1.80-8.00) x10^3/uL Lymph # (Auto) 0.49 L (0.60-5.00) 10^3/uL [place] # (Auto) 0.41 (0.00-1.50) 10^3/uL Eos # (Auto) 0.00 (0.00-1.50) 10^3/uL Baso # (Auto) 0.02 (0.00-0.50) 10^3/uL Immature Gran # (Auto) 0.03 (0.00-0.49) 10^3/uL Meds: Medications Discontinued Medications Generic Name Dose Route Start Last Admin Trade Name Freq PRN Reason Stop Dose Admin Al Hydroxide/Mg Hydroxide 30 0 ml 05/14/21 01:19 ml/ Lidocaine HCl 15 ml PO 05/14/21 01:20 ONETIME ONE - Re-Assessments/Exams Free Text/Narrative Re-Assessment/Exam: 05/14/21 01:53 discussed lab results with pt. Normal troponin level. Elevated LFT and lipase. discussed pancreatitis with the pt. He has never been told that he has had it in the past. Will admit observation. IV hydration. Ativan for withdrawals and anxiety as needed. control his BP. (He has never picked up the BP meds that he was ordered in the past at the pharmacy.) Departure - Departure Time of Disposition: 01:57 Disposition: Home, Self-Care 01 Condition: Fair Clinical Impression: Alcohol abuse Pancreatitis, alcoholic, acute Qualifiers: Acute pancreatitis complication: unspecified Qualified Code(s): K85.20 - Alcohol induced acute pancreatitis without necrosis or infection Hypertension Qualifiers: Hypertension type: primary hypertension Qualified Code(s): I10 - Essential (primary) hypertension - Discharge Information *PRESCRIPTION DRUG MONITORING PROGRAM REVIEWED*: Not Applicable *COPY OF PRESCRIPTION DRUG MONITORING REPORT IN PATIENT CALLI: Not Applicable - Problem List & Annotations (1) Pancreatitis, alcoholic, acute SNOMED Code(s): 104478295 Code(s): K85.20 - ALCOHOL INDUCED ACUTE PANCREATITIS WITHOUT NECROSIS OR INFCT Status: Acute Priority: High Current Visit: Yes Qualifiers: Acute pancreatitis complication: unspecified Qualified Code(s): K85.20 - Alcohol induced acute pancreatitis without necrosis or infection (2) Alcohol abuse SNOMED Code(s): 48214337 Code(s): F10.10 - ALCOHOL ABUSE, UNCOMPLICATED Status: Chronic Priority: Medium Current Visit: Yes (3) Hypertension SNOMED Code(s): 65905636 Code(s): I10 - ESSENTIAL (PRIMARY) HYPERTENSION Status: Acute Priority: High Current Visit: Yes Qualifiers: Hypertension type: primary hypertension Qualified Code(s): I10 - Essential (primary) hypertension - Problem List Review Problem List Initiated/Reviewed/Updated: Yes - My Orders Last 24 Hours: My Active Orders 05/14/21 01:06 CXR [Chest 1V Frontal] [CR] Stat 05/14/21 01:15 COMPREHENSIVE METABOLIC PN,CMP [CHEM] Stat CREATINE KINASE,CK [CHEM] Stat INR,PT,PROTHROMBIN TIME [COAG] Stat LACTATE DEHYDROGENASE,LDH [CHEM] Stat LIPASE [CHEM] Stat MAGNESIUM [CHEM] Stat PTT,PARTIAL THROMBOPLSTIN TIME [COAG] Stat TROPONIN I HIGH SENSITIVITY [CHEM] Stat - Assessment/Plan Admission H&P: Please use this note as an admission H&P Last 24 Hours: My Active Orders 05/14/21 01:06 CXR [Chest 1V Frontal] [CR] Stat 05/14/21 01:15 COMPREHENSIVE METABOLIC PN,CMP [CHEM] Stat CREATINE KINASE,CK [CHEM] Stat INR,PT,PROTHROMBIN TIME [COAG] Stat LACTATE DEHYDROGENASE,LDH [CHEM] Stat LIPASE [CHEM] Stat MAGNESIUM [CHEM] Stat PTT,PARTIAL THROMBOPLSTIN TIME [COAG] Stat TROPONIN I HIGH SENSITIVITY [CHEM] Stat Plan: Will admit observation, IV hydration, ativan for anxiety, NPO except water.
[2021-05-14 01:30] LABS: CHLORIDE,CL 95 mEq/L (98-106); SODIUM,NA 139 mEq/L (136-145)
[2021-05-14] MEDS ORDERED: LORazepam 2 MG/ML Syringe IVPUSH ONE (01:55)
[2021-05-14] MEDS ORDERED: LORazepam 2 MG/ML Syringe IVPUSH PRN (02:06)
[2021-05-14] MEDS ORDERED: Sodium Chloride 0.9% 10 ML Syringe FLUSH PRN (02:06)
[2021-05-14] MEDS ORDERED: Potassium Chloride 20 MEQ in Premix Bag 1 BAG IV ONE (02:11)
[2021-05-14] MEDS ORDERED: Magnesium Sulfate/Water 2 GM in Premix Bag 1 BAG IV ONE (02:11)
[2021-05-14] MEDS ORDERED: cloNIDine 0.1 MG Tab PO STA ×2 (02:13→20:24)
[2021-05-14] MEDS ORDERED: Multivitamins w-Iron/Ca/FA/Min 1 TAB, Thiamine 100 MG, Folic Acid 1 MG, Magnesium Oxide... PO SCH ×3 (02:15)
[2021-05-14] MEDS ORDERED: Enoxaparin 40 MG/0.4 ML Syringe SUBCUT SCH (02:15)
[2021-05-14] MEDS ORDERED: Pantoprazole 40 MG Vial IVPUSH ONE (02:30)
[2021-05-14] MEDS: Sodium Chloride 0.9% 1,000 ML IV SCH ×4 (02:35→20:14)
[2021-05-14] MEDS: Ondansetron 4 MG Tab.DIS PO PRN (02:51)
[2021-05-14] MEDS: LORazepam 2 MG/ML Syringe IVPUSH PRN ×3 (02:52→20:22)
[2021-05-14] MEDS ORDERED: Multivitamins w-Iron/Ca/FA/Min 1 TAB, Thiamine 100 MG, Folic Acid 1 MG, Magnesium Oxide... PO ONE ×3 (03:00)
[2021-05-14] MEDS ORDERED: Thiamine 100 MG Tab PO ONE (03:00)
[2021-05-14] MEDS ORDERED: Folic Acid 1 MG Tab PO ONE (03:00)
[2021-05-14] MEDS ORDERED: Multivitamin Tab PO ONE (03:00)
[2021-05-14] MEDS ORDERED: fentaNYL 50 MCG/ML SDV IM PRN (03:24)
[2021-05-14] MEDS: Pantoprazole 40 MG Vial IVPUSH SCH ×2 (08:17→20:12)
[2021-05-14] MEDS: fentaNYL 50 MCG/ML SDV IV PRN ×2 (10:30→20:12)
[2021-05-14] MEDS: chlordiazePOXIDE 10 MG Cap PO SCH ×3 (11:54→20:13)
--- NOTE | 2021-05-14 13:04 | PN ---
DATE: 05/14/2021 S: Mr. Carlos was admitted for pancreatitis. He is an alcoholic who has been binge drinking. He has had episodes similar to this in the past. I am not sure if he has been formally diagnosed with pancreatitis in his past. He is untreated for hypertension, suffers from morbid obesity. He has had some tachycardia and elevated blood pressures, but has been afebrile since admission. His lab work shows him to be hypokalemic and hypomagnesemic as well. His liver functions are elevated and he has an elevated lipase of 631. He really denies any new symptoms other than feeling abdominal pain. O: GENERAL: He does not look like he is in any distress on exam. He suffers from morbid obesity. HEENT: Benign. LUNGS: His lung sounds appeared clear, albeit diminished and distant. CARDIAC: Tones are regular, slightly tachy. ABDOMEN: Morbidly obese. Minimal epigastric pain to palpation. EXTREMITIES: No significant peripheral edema. ASSESSMENT: 1. ACUTE PANCREATITIS. 2. HEPATITIS. 3. CHRONIC ALCOHOLISM. 4. HYPOKALEMIA. 5. HYPOMAGNESEMIA. P: We will start him on some oral Librium to prevent DTs. He is getting IV Ativan right now. He has taken lisinopril in the past and is supposed to be on this for his blood pressure. We will start him on lisinopril 20 a day. We will recheck his Panel 8 and magnesium later this afternoon. For now, keep him with ice chips only as he still has abdominal pain and we will get an ultrasound of his abdomen to evaluate his pancreas for any pseudocyst, etc. GABE/JASMEET /[id number]
[2021-05-14 15:50] LABS: CHLORIDE,CL 101 mEq/L (98-106); SODIUM,NA 142 mEq/L (136-145)
[2021-05-14] MEDS ORDERED: MULTIVITAMINS PO SCH ×4 (17:30)
[2021-05-14] MEDS ORDERED: Folic Acid 1 MG, Multivitamins 1 TAB, Thiamine 100 MG, Magnesium Oxide 500 MG PO SCH ×16 (17:30)
[2021-05-14] MEDS ORDERED: MAGNESIUM OXIDE PO SCH ×4 (17:30)
[2021-05-14] MEDS ORDERED: THIAMINE PO SCH ×4 (17:30)
[2021-05-14] MEDS ORDERED: FOLIC ACID PO SCH ×4 (17:30)
[2021-05-14] MEDS: Thiamine 100 MG Tab PO SCH (20:13)
[2021-05-14] MEDS ORDERED: Levofloxacin/Dextrose 5%-Water 500 MG in Premix Bag 1 BAG IV SCH (20:45)
[2021-05-14] MEDS ORDERED: cefTRIAXone 2 GM Vial IVPUSH SCH (20:45)
[2021-05-14] MEDS: Levofloxacin/Dextrose 5%-Water 500 MG in Premix Bag 1 BAG IV SCH (21:44)
[2021-05-15] MEDS ORDERED: amLODIPine 2.5 MG Tab PO ONE (00:18)
[2021-05-15] MEDS: LORazepam 2 MG/ML Syringe IVPUSH PRN ×3 (00:43→12:11)
[2021-05-15] MEDS: Sodium Chloride 0.9% 1,000 ML IV SCH ×2 (03:59→12:44)
[2021-05-15] MEDS: Pantoprazole 40 MG Vial IVPUSH SCH ×2 (07:36→20:16)
[2021-05-15] MEDS: chlordiazePOXIDE 10 MG Cap PO SCH ×4 (07:40→20:17)
[2021-05-15] MEDS: Ondansetron 4 MG Tab.DIS PO PRN (07:45)
[2021-05-15] MEDS: fentaNYL 50 MCG/ML SDV IV PRN (07:46)
[2021-05-15] MEDS ORDERED: Multivitamins w-Iron/Ca/FA/Min 1 TAB, Thiamine 100 MG, Folic Acid 1 MG, Magnesium Oxide... PO SCH ×3 (08:00)
[2021-05-15] MEDS ORDERED: Lisinopril 20 MG Tab PO SCH (08:00)
[2021-05-15 10:37] LABS: CHLORIDE,CL 103 mEq/L (98-106); SODIUM,NA 142 mEq/L (136-145)
[2021-05-15] MEDS ORDERED: amLODIPine 10 MG Tab PO STA (11:43)
--- NOTE | 2021-05-15 14:23 | PN ---
DATE: 05/15/2021 S: Marco A is a 46-year-old gentleman, who was admitted to the hospital for pancreatitis. He does suffer from chronic alcoholism, who had been binge drinking. He has had previous episodes of pancreatitis in the past. He does have history of uncontrolled hypertension as well in which he has been on medications; however, he has not been taking it. Since admission, he has been afebrile. Dr. Tracey did do a right upper quadrant ultrasound yesterday, which did confirm an enlarged gallbladder. There were concerns of a cholecystitis. He was started on Levaquin yesterday. Lipase was elevated on admission at 631. O: VITAL SIGNS: Blood pressures have been elevated in the 170s to low 100s to 160s to low 100s. O2 of 98% on room air, was previously on oxygen, has been weaned off. Temperature has been afebrile, 98.2. Respiratory rate of 18 to 20. GENERAL: Pleasant and cooperative male, does not really appear to be in any acute distress. Not acutely ill. HEENT: Unremarkable. LUNGS: Clear to auscultation. I do not hear any adventitious sounds. CARDIAC: Sinus tachycardia. No murmurs are noted. No pitting edema is noted. ABDOMEN: Soft. No tenderness in the right upper quadrant or in the epigastric region. He is morbidly obese. Pain has significantly improved. ASSESSMENT: 1. ACUTE PANCREATITIS. 2. HEPATITIS. 3. CHRONIC ALCOHOLISM. 4. HYPOKALEMIA. 5. HYPOMAGNESEMIA. 6. MORBID OBESITY. P: We will plan to advance diet today. Laboratory work did confirm lipase to improve slightly, it has started trending downward. Liver enzymes have declined as well. CRP was 4.3 today. White blood count remains within normal limits at 5000. I did consult Dr. Tracey in regard to Marco A's condition. We will plan for a repeat laboratory work in the morning. We will continue with IV antibiotics. We will increase his lisinopril to 20 mg twice a day and increase his Norvasc to 10 mg daily and start to have better blood pressure control. The patient is in agreement. We will again closely monitor. KEYA/JASMEET /[id number]
[2021-05-15] MEDS: Thiamine 100 MG Tab PO SCH (20:16)
[2021-05-15] MEDS: Levofloxacin/Dextrose 5%-Water 500 MG in Premix Bag 1 BAG IV SCH (20:17)
[2021-05-15] MEDS: Lisinopril 20 MG Tab PO SCH (20:17)
[2021-05-16] MEDS: LORazepam 2 MG/ML Syringe IVPUSH PRN ×2 (00:43→07:44)
[2021-05-16 07:32] LABS: CHLORIDE,CL 103 mEq/L (98-106); SODIUM,NA 135 mEq/L (136-145)
[2021-05-16] MEDS: Lisinopril 20 MG Tab PO SCH ×2 (07:35→19:49)
[2021-05-16] MEDS: chlordiazePOXIDE 10 MG Cap PO SCH ×4 (07:35→19:49)
[2021-05-16] MEDS: Pantoprazole 40 MG Vial IVPUSH SCH ×2 (07:35→19:49)
--- NOTE | 2021-05-16 13:17 | PCM.PN ---
- General Info Date of Service: 05/16/21 Functional Status: Reports: Pain Controlled (09/30 today, improved from 10 yesterday. ), Tolerating Diet (clear liquids tolerating today), Ambulating (up to bathroom, but uses a urinal more often. ), Urinating - Review of Systems General: Reports: No Symptoms HEENT: Reports: No Symptoms Pulmonary: Reports: No Symptoms. Denies: Shortness of Breath Cardiovascular: Reports: No Symptoms Gastrointestinal: Reports: Abdominal Pain. Denies: Diarrhea, Nausea, Vomiting Genitourinary: Reports: No Symptoms Musculoskeletal: Reports: No Symptoms Skin: Reports: No Symptoms Neurological: Reports: No Symptoms Psychiatric: Reports: Other ("getting bored, but not ready to go home."). Denies: Confusion, Depression, Suicidal Ideation, Homicidal Ideation - Patient Data Vitals - Most Recent: Last Vital Signs Temp 98.8 F 05/16/21 12:00 Pulse 110 H 05/16/21 12:00 Resp 18 05/16/21 12:00 BP 155/89 H 05/16/21 12:00 Pulse Ox 95 05/16/21 12:00 Weight - Most Recent: 368 lb 1.6 oz I&O - Last 24 Hours: Intake & Output 05/15/21 05/16/21 05/16/21 22:59 06:59 14:59 Intake Total 2300 950 Output Total 2000 2400 Balance 300 -1450 Lab Results Last 24 Hours: Laboratory Results - last 24 hr 05/16/21 05/16/21 Range/Units 07:10 07:10 WBC 5.4 (4.0-11.0) 10^3/uL RBC 3.49 L (4.50-6.00) x10^6/uL Hgb 12.9 L (14.0-18.0) g/dL Hct 37.3 L (42.0-52.0) % MCV 106.9 H (83.0-97.0) fL MCH 37.0 H (27.0-32.0) pg MCHC 34.6 (32.0-36.0) g/dL RDW Coeff of Erica 15.3 H (11.0-15.0) % Plt Count 86 L (150-400) 10^3/uL Immature Gran % (Auto) 0.6 (0.0-4.9) % Neut % (Auto) 77.6 H (41-71) % Lymph % (Auto) 12.1 L (24-44) % [place] % (Auto) 8.2 (0-10) % Eos % (Auto) 1.1 (0-6) % Baso % (Auto) 0.4 (0-1) % Neut # (Auto) 4.15 (1.80-8.00) x10^3/uL Lymph # (Auto) 0.65 (0.60-5.00) 10^3/uL [place] # (Auto) 0.44 (0.00-1.50) 10^3/uL Eos # (Auto) 0.06 (0.00-1.50) 10^3/uL Baso # (Auto) 0.02 (0.00-0.50) 10^3/uL Immature Gran # (Auto) 0.03 (0.00-0.49) 10^3/uL Sodium 135 L (136-145) mEq/L Potassium 3.6 (3.5-5.0) mEq/L Chloride 103 (98-106) mEq/L Carbon Dioxide 29 (21-32) mmol/L BUN 4 L (7-18) mg/dL Creatinine 0.9 (0.7-1.3) mg/dL Est Cr Clr Drug Dosing 118.37 mL/min Estimated GFR (MDRD) > 60 (>=60) mL/min Glucose 114 H (75-99) mg/dL Calcium 8.4 (8.4-10.1) mg/dL Magnesium 1.7 L (1.8-2.4) mg/dL Total Bilirubin 3.0 H (0.0-1.0) mg/dL AST 189 H (15-37) U/L ALT 102 H (12-78) U/L Alkaline Phosphatase 95 (46-116) U/L Total Protein 6.7 (6.4-8.2) g/dL Albumin 2.8 L (3.4-5.0) g/dL Amylase 60 (25-115) U/L Lipase 502 H (73-393) U/L Med Orders - Current: Current Medications Amlodipine Besylate (Amlodipine 10 Mg Tab) 10 mg PO BEDTIME [facility] Chlordiazepoxide HCl (Chlordiazepoxide 10 Mg Cap) 10 mg PO QID [facility] Last Admin: 05/16/21 13:02 Dose: 10 mg Documented by: Folic Acid 1 mg/ Multivitamins /Minerals/Vitamin C 1 tab/Thiamine HCl 100 mg/ Magnesium Oxide 500 mg 0 mg PO DAILY@1730 [facility] Fentanyl (Fentanyl 50 Mcg/Ml Sdv) 50 mcg IV Q6H PRN PRN Reason: Pain Last Admin: 05/15/21 07:46 Dose: 50 mcg Documented by: Sodium Chloride (Normal Saline) 1,000 mls @ 999 mls/hr IV .BOLUS [facility] Last Admin: 05/15/21 12:44 Dose: 999 mls/hr Documented by: Sodium Chloride (Normal Saline) 1,000 mls @ 125 mls/hr IV ASDIRECTED [facility] Last Admin: 05/15/21 03:59 Dose: 125 mls/hr Documented by: Levofloxacin/Dextrose 500 mg/ (Premix) 100 mls @ 100 mls/hr IV BEDTIME [facility] Last Admin: 05/15/21 20:17 Dose: 100 mls/hr Documented by: Lisinopril (Lisinopril 20 Mg Tab) 20 mg PO BID [facility] Last Admin: 05/16/21 07:35 Dose: 20 mg Documented by: Lorazepam (Lorazepam 2 Mg/Ml Syringe) 1 mg IVPUSH Q4H PRN PRN Reason: Agitation Last Admin: 05/16/21 07:44 Dose: 1 mg Documented by: Ondansetron HCl (Ondansetron 4 Mg Tab.Dis) 8 mg PO Q4H PRN PRN Reason: nausea, able to take PO Last Admin: 05/15/21 07:45 Dose: 8 mg Documented by: Pantoprazole Sodium (Pantoprazole 40 Mg Vial) 40 mg IVPUSH Q12H [facility] Last Admin: 05/16/21 07:35 Dose: 40 mg Documented by: Sodium Chloride (Sodium Chloride 0.9% 10 Ml Syringe) 10 ml FLUSH ASDIRECTED PRN PRN Reason: Keep Vein Open Thiamine HCl (Thiamine 100 Mg Tab) 100 mg PO BEDTIME [facility] Last Admin: 05/15/21 20:16 Dose: 100 mg Documented by: Discontinued Medications Amlodipine Besylate (Amlodipine 2.5 Mg Tab) 5 mg PO ONETIME ONE Stop: 05/15/21 00:19 Last Admin: 05/15/21 00:33 Dose: 5 mg Documented by: Amlodipine Besylate (Amlodipine 10 Mg Tab) 5 mg PO NOW STA Stop: 05/15/21 11:44 Last Admin: 05/15/21 12:10 Dose: 5 mg Documented by: Ceftriaxone Sodium (Ceftriaxone 2 Gm Vial) 2 gm IVPUSH Q24H [facility] Clonidine HCl (Clonidine 0.1 Mg Tab) 0.1 mg PO NOW STA Stop: 05/14/21 02:14 Last Admin: 05/14/21 02:34 Dose: 0.1 mg Documented by: Clonidine HCl (Clonidine 0.1 Mg Tab) 0.1 mg PO NOW STA Stop: 05/14/21 20:25 Last Admin: 05/14/21 20:50 Dose: 0.1 mg Documented by: Al Hydroxide/Mg Hydroxide 30 (ml/ Lidocaine HCl 15 ml) 0 ml PO ONETIME ONE Stop: 05/14/21 01:20 Last Admin: 05/14/21 01:26 Dose: 45 ml Documented by: Multivitamins/Minerals 1 tab/Thiamine HCl 100 mg/ Folic Acid 1 mg/ Magnesium Oxide 400 mg 0 tab PO DAILY [facility] Last Admin: 05/14/21 03:22 Dose: Not Given Documented by: Multivitamins/Minerals 1 tab/Thiamine HCl 100 mg/ Folic Acid 1 mg/ Magnesium Oxide 400 mg 0 tab PO NOW ONE Stop: 05/14/21 03:01 Multivitamins/Minerals 1 tab/Thiamine HCl 100 mg/ Folic Acid 1 mg/ Magnesium Oxide 400 mg 0 tab PO DAILY [facility] Enoxaparin Sodium (Enoxaparin 40 Mg/0.4 Ml Syringe) 40 mg SUBCUT Q24H [facility] Last Admin: 05/14/21 03:30 Dose: Not Given Documented by: Fentanyl (Fentanyl 50 Mcg/Ml Sdv) 50 mcg IM Q6H PRN PRN Reason: Pain Last Admin: 05/14/21 03:46 Dose: 50 mcg Documented by: Folic Acid (Folic Acid 1 Mg Tab) 1 mg PO NOW ONE Stop: 05/14/21 03:01 Last Admin: 05/14/21 03:00 Dose: 1 mg Documented by: Magnesium Sulfate 2 gm/ Premix 50 mls @ 25 mls/hr IV ONETIME ONE Stop: 05/14/21 04:10 Last Admin: 05/14/21 03:38 Dose: 25 mls/hr Documented by: Potassium Chloride 20 meq/ (Premix) 100 mls @ 25 mls/hr IV ONETIME ONE Stop: 05/14/21 06:10 Last Admin: 05/14/21 05:44 Dose: 25 mls/hr Documented by: Levofloxacin/Dextrose 500 mg/ (Premix) 100 mls @ 100 mls/hr IV BEDTIME [facility] Last Admin: 05/14/21 20:49 Dose: 100 mls/hr Documented by: Lisinopril (Lisinopril 20 Mg Tab) 20 mg PO DAILY [facility] Last Admin: 05/15/21 07:40 Dose: 20 mg Documented by: Lorazepam (Lorazepam 2 Mg/Ml Syringe) 0.25 mg IVPUSH ONETIME ONE Stop: 05/14/21 01:56 Last Admin: 05/14/21 02:00 Dose: 0.25 mg Documented by: Lorazepam (Lorazepam 2 Mg/Ml Syringe) 0.25 mg IVPUSH Q6H PRN PRN Reason: Anxiety Magnesium Oxide (Magnesium Oxide 250 Mg Tab) 500 mg PO NOW ONE Stop: 05/14/21 03:01 Last Admin: 05/14/21 03:00 Dose: 500 mg Documented by: Multivitamins/Minerals/Vitamin C (Multivitamin Tab) 1 tab PO NOW ONE Stop: 05/14/21 03:01 Last Admin: 05/14/21 03:01 Dose: 1 tab Documented by: Pantoprazole Sodium (Pantoprazole 40 Mg Vial) 40 mg IVPUSH NOW ONE Stop: 05/14/21 02:31 Last Admin: 05/14/21 02:44 Dose: 40 mg Documented by: Thiamine HCl (Thiamine 100 Mg Tab) 100 mg PO NOW ONE Stop: 05/14/21 03:01 Last Admin: 05/14/21 03:02 Dose: 100 mg Documented by: - Exam General: Alert, Oriented, Cooperative, No Acute Distress HEENT: Pupils Equal, Pupils Reactive, Mucous Membr. Moist/[place] Neck: Supple, Trachea Midline, No JVD Lungs: Clear to Auscultation, Normal Respiratory Effort Cardiovascular: Regular Rate, Regular Rhythm GI/Abdominal Exam: Normal Bowel Sounds, Soft, Tender (umbilical), Other (obese) Back Exam: Normal Inspection, Full Range of Motion Extremities: Normal Inspection, Normal Range of Motion, Non-Tender, No Pedal Edema, Normal Capillary Refill Peripheral Pulses: 2+: Radial (L), Radial (R), Posterior Tibial (L), Posterior Tibial (R) Skin: Warm, Dry, Intact Psy/Mental Status: Alert, Normal Affect, Normal Mood - Patient Data Lab Results Last 24 hrs: Laboratory Results - last 24 hr 05/16/21 05/16/21 Range/Units 07:10 07:10 WBC 5.4 (4.0-11.0) 10^3/uL RBC 3.49 L (4.50-6.00) x10^6/uL Hgb 12.9 L (14.0-18.0) g/dL Hct 37.3 L (42.0-52.0) % MCV 106.9 H (83.0-97.0) fL MCH 37.0 H (27.0-32.0) pg MCHC 34.6 (32.0-36.0) g/dL RDW Coeff of Erica 15.3 H (11.0-15.0) % Plt Count 86 L (150-400) 10^3/uL Immature Gran % (Auto) 0.6 (0.0-4.9) % Neut % (Auto) 77.6 H (41-71) % Lymph % (Auto) 12.1 L (24-44) % [place]mullen % (Auto) 8.2 (0-10) % Eos % (Auto) 1.1 (0-6) % Baso % (Auto) 0.4 (0-1) % Neut # (Auto) 4.15 (1.80-8.00) x10^3/uL Lymph # (Auto) 0.65 (0.60-5.00) 10^3/uL [place] # (Auto) 0.44 (0.00-1.50) 10^3/uL Eos # (Auto) 0.06 (0.00-1.50) 10^3/uL Baso # (Auto) 0.02 (0.00-0.50) 10^3/uL Immature Gran # (Auto) 0.03 (0.00-0.49) 10^3/uL Sodium 135 L (136-145) mEq/L Potassium 3.6 (3.5-5.0) mEq/L Chloride 103 (98-106) mEq/L Carbon Dioxide 29 (21-32) mmol/L BUN 4 L (7-18) mg/dL Creatinine 0.9 (0.7-1.3) mg/dL Est Cr Clr Drug Dosing 118.37 mL/min Estimated GFR (MDRD) > 60 (>=60) mL/min Glucose 114 H (75-99) mg/dL Calcium 8.4 (8.4-10.1) mg/dL Magnesium 1.7 L (1.8-2.4) mg/dL Total Bilirubin 3.0 H (0.0-1.0) mg/dL AST 189 H (15-37) U/L ALT 102 H (12-78) U/L Alkaline Phosphatase 95 (46-116) U/L Total Protein 6.7 (6.4-8.2) g/dL Albumin 2.8 L (3.4-5.0) g/dL Amylase 60 (25-115) U/L Lipase 502 H (73-393) U/L Result Diagrams: 05/16/21 07:10 05/16/21 07:10 Sepsis Event Note - Evaluation Sepsis Screening Result: No Definite Risk - Focused Exam Vital Signs: Vital Signs Temp Pulse Resp BP BP Pulse Ox 05/16/21 12:00 98.8 F 110 H 18 155/89 H 95 05/16/21 07:36 98.1 F 107 H 20 168/110 H 93 L 05/16/21 07:35 168/110 H 05/16/21 04:00 97.3 F 105 H 18 152/94 H 96 - Problem List Review Problem List Initiated/Reviewed/Updated: Yes - Plan Plan:: 05/16/21 12:05pm Patient was admitted for pancreatitis, abd pain. Patient is also a daily drinker. Patient today reports that his abdominal pain is a little better. The patient reports that his pain today is a 2/10 and yesterday was 4/10. Patient is sitting up in chair and does not appear to be in distress. The patient reports that he does feel like he is getting netter, but does not feel like he is ready to go home today. Patient reports that he is bored while here. Patient has been given things to do and ideas or suggestions to pass his time here. Patient reports that he has been able to drink liquids without any difficulty. He denies pain or vomiting with liquids. I will advance diet this evening to regular diet to see if patient can tolerate. Patient labs 2 days ago were mg 1.3, bilirubin 2.9, AST 258, ALT 147, Lipase 631. Yesterday mg 1.9, bilirubin 2.5, AST 122, ALT 90, CPR 4.3, LIPASE 586. Today labs are mg 1.7, biliruibin 3.0, AST 189, ALT 102, LIPASE 502. Labs are improving. Will see how patient tolerates his regular diet this evening and tomorrow morning. If patient tolerates and labs continue improvement tomorrow, the patient may be discharged home tomorrow. Patient denies any fever, vomiting, increased pain.
[2021-05-16] MEDS: Levofloxacin/Dextrose 5%-Water 500 MG in Premix Bag 1 BAG IV SCH (19:49)
[2021-05-16] MEDS: amLODIPine 10 MG Tab PO SCH (19:54)
[2021-05-16] MEDS: Thiamine 100 MG Tab PO SCH (19:54)
[2021-05-17] MEDS: Pantoprazole 40 MG Vial IVPUSH SCH ×2 (07:56→20:11)
[2021-05-17] MEDS: chlordiazePOXIDE 10 MG Cap PO SCH ×4 (08:00→20:12)
[2021-05-17] MEDS: Lisinopril 20 MG Tab PO SCH ×2 (08:01→20:12)
[2021-05-17] MEDS: Metoprolol Succinate 25 MG Tab.ER PO SCH (10:41)
[2021-05-17] MEDS: Ibuprofen 200 MG Tab PO PRN ×2 (10:41→20:23)
--- NOTE | 2021-05-17 18:26 | PN ---
DATE: 05/17/2021 S: Mr. Carlos is doing better. He is still running some low-grade temps at times, had 101.2 fever today. His blood pressures remain elevated. He does feel better with regard to his abdominal pain. He is tolerating a soft diet at this point. Has not had much trouble in that regard. Remains on Levaquin. He does have an ultrasound documenting probably a large gallbladder with chronic cholecystitis. His lipase and liver tests are all improving. O: GENERAL: He is in his usual state. HEENT: Benign. NECK: Neck veins are nondistended. LUNGS: Lung sounds are diminished, but appear to be clear. CARDIAC: Tones are regular. ABDOMEN: Obese, soft. He does have pain in the right upper quadrant to palpation diffusely. No guarding, rebound, or rigidity. No peripheral edema. ASSESSMENT: 1. CHRONIC ALCOHOLISM. 2. ACUTE PANCREATITIS/HEPATITIS. 3. LIKELY CHRONIC CHOLECYSTITIS. 4. DIARRHEA. 5. HYPERTENSION. P: The patient continues to show improvement every day. He is not having any withdrawal symptoms at this time. His blood pressures remain elevated and we will initiate Toprol-XL daily to go along with his Norvasc and lisinopril. Diet continues to be advanced and for the most part this gentleman has done well. He will need surgical consultation for his gallbladder at some point in the future. We will get him up and ambulating. Once he gets to a full diet and is doing well with regard to pain, he will be stable for discharge. Stool studies today will include a C diff, culture, and wbcs. GABE/JASMEET /[id number]
[2021-05-17] MEDS: amLODIPine 10 MG Tab PO SCH (20:11)
[2021-05-17] MEDS: Thiamine 100 MG Tab PO SCH (20:13)
[2021-05-17] MEDS: Levofloxacin/Dextrose 5%-Water 500 MG in Premix Bag 1 BAG IV SCH (20:13)
[2021-05-18] MEDS: Pantoprazole 40 MG Vial IVPUSH SCH (08:05)
[2021-05-18] MEDS: Lisinopril 20 MG Tab PO SCH (08:09)
[2021-05-18] MEDS: chlordiazePOXIDE 10 MG Cap PO SCH (08:09)
[2021-05-18] MEDS: Metoprolol Succinate 25 MG Tab.ER PO SCH (08:09)
[2021-05-18 10:22] LABS: CHLORIDE,CL 106 mEq/L (98-106); SODIUM,NA 144 mEq/L (136-145)
== END 2021-05-18 11:05 | disposition home or self-care (01) | DRG 439 ==
LOC: CC.ED 00:55 → UNDOADMOB 02:00 → CC.MS 02:00 → OBSVTOIN 05-17 11:05
PROVIDERS: ADMIT Physician Assistant Medical; ATTEND Family Medicine
DX: K85.20 Alcohol induced acute pancreatitis without necrosis or infection (principal); Z68.42 Body mass index [BMI] 45.0-49.9, adult; F10.10 Alcohol abuse, uncomplicated; I10 Essential (primary) hypertension; K21.9 Gastro-esophageal reflux disease without esophagitis; M10.9 Gout, unspecified; E03.9 Hypothyroidism, unspecified; Z98.52 Vasectomy status; Z98.890 Other specified postprocedural states; Z88.0 Allergy status to penicillin; K70.10 Alcoholic hepatitis without ascites; E87.6 Hypokalemia; E83.42 Hypomagnesemia; E66.01 Morbid (severe) obesity due to excess calories; K81.1 Chronic cholecystitis; Z20.822 Contact with and (suspected) exposure to COVID-19
CPT/HCPCS: 36415; 71045; 76705; 80048; 80053; 82150; 82550; 83615; 83690; 83735; 84484; 85025; 85610; 85730; 86140; 87493; 89055; 93005; 96365; 96366; 96367; 96372; 96374; 96375; 96376; 99285-25; A9270-GY; C9113; G0378; J1956; J2060; J3010; J3475; J3480; J7030; U0002

== ENCOUNTER 2021-07-07 20:48 | Emergency (ER) | payer MEDICAID ==
[2021-07-07 21:29] LABS: CHLORIDE,CL 105 mEq/L (98-106); SODIUM,NA 142 mEq/L (136-145)
--- NOTE | 2021-07-07 21:39 | EDM.PDOC ---
ED HPI GENERAL MEDICAL PROBLEM - General Chief Complaint: Abdominal Pain Stated Complaint: abdominal pressure Time Seen by Provider: 07/07/21 21:16 Source of Information: Reports: Patient History Limitations: Reports: No Limitations - History of Present Illness INITIAL COMMENTS - FREE TEXT/NARRATIVE: Marco A is a 46 yo male who presents to the ED with complaints of intermittent abd ominal discomfort. States it really isn't a pain but has been becoming more consistent since yesterday. States he does have a bad gallbladder and is scheduled to see the surgeon in [place] on the upcoming Monday. He states he sleeps during the day and is up most of the night. Admits he would have came to the clinic but doesn't have a ride during the day. States the last 3 nights he has noticed it more. Denies any alcohol as he has been dry since last hospitalization in April d/t pancreatitis. He states he has been eating a lot better, mostly bland diet. Denies any fevers. States bowel movements have been normal. Last one was this morning. No diarrhea or bloody stools. No urinary complaints. States he is voiding fine without any dysuria. Abdominal Pain Score (Numeric/FACES): 3 - Related Data Allergies Allergy/AdvReac Type Severity Reaction Status Date / Time Penicillins Allergy Hives Verified 07/07/21 20:54 Home Meds: Home Meds Omeprazole 40 mg PO QAM #14 capsule. 01/17/21 [Rx] Metoprolol Succinate [Toprol XL] 50 mg PO DAILY #30 tab.er 05/18/21 [Rx] amLODIPine [Norvasc] 10 mg PO DAILY #30 tab 05/18/21 [Rx] lisinopriL [Prinivil] 20 mg PO BID #60 tablet 05/18/21 [Rx] Past Medical History Cardiovascular History: Reports: Hypertension Gastrointestinal History: Reports: Cholelithiasis, GERD, Pancreatitis Musculoskeletal History: Reports: Gout, Osteoarthritis, Osteoporosis Psychiatric History: Reports: Addiction, Anxiety Endocrine/Metabolic History: Reports: Hypothyroidism - Past Surgical History GI Surgical History: Reports: Hernia, Abdominal, Hernia, Inguinal Male Surgical History: Reports: Vasectomy Social & Family History - Family History Family Medical History: No Pertinent Family History - Tobacco Use Tobacco Use Status *Q: Former Tobacco User Used Tobacco, but Quit: Yes Month/Year Tobacco Last Used: 2017 - Caffeine Use Caffeine Use: Reports: None ED ROS GENERAL - Review of Systems Review Of Systems: See Below Constitutional: Denies: Fever, Fatigue, Decreased Appetite HEENT: Reports: No Symptoms Respiratory: Reports: No Symptoms Cardiovascular: Reports: No Symptoms GI/Abdominal: Reports: Abdominal Pain, Distension, Nausea. Denies: Black Stool, Bloody Stool, Constipation, Diarrhea, Decreased Appetite, Hematemesis, Hematochezia, Melena, Mucous in Stool, Vomiting : Reports: No Symptoms. Denies: Discharge, Dysuria, Flank Pain Musculoskeletal: Reports: Back Pain (chronic) Skin: Reports: No Symptoms Neurological: Reports: No Symptoms Psychiatric: Reports: No Symptoms ED EXAM, GI/ABD - Physical Exam Exam: See Below General Appearance: Alert, No Apparent Distress, Obese Ears: Normal External Exam, Normal Canal, Hearing Grossly Normal, Normal TMs Nose: Normal Inspection, Normal Mucosa Throat/Mouth: Normal Inspection, Normal Lips, Normal Teeth, Normal Gums, Normal Oropharynx, Normal Voice, No Airway Compromise Head: Atraumatic, Normocephalic Neck: Normal Inspection, Supple, Non-Tender Respiratory/Chest: No Respiratory Distress, Lungs Clear, Normal Breath Sounds, No Accessory Muscle Use Cardiovascular: Regular Rate, Rhythm, No Edema, No Murmur GI/Abdominal Exam: Normal Bowel Sounds, Soft, No Organomegaly, No Distention, No Mass, Tender (very mild, generalized) Back Exam: No: CVA Tenderness (L), CVA Tenderness (R) Neurological: Alert, Oriented, Normal Cognition Psychiatric: Normal Affect, Normal Mood Skin Exam: Warm, Dry, Intact, Normal Color, No Rash Course - Vital Signs Last Recorded V/S: Last Vital Signs Temp 96.3 F L 07/07/21 20:48 Pulse 88 07/07/21 20:48 Resp 16 07/07/21 20:48 BP 143/93 H 07/07/21 21:17 Pulse Ox 98 07/07/21 20:48 - Orders/Labs/Meds Labs: Laboratory Tests 07/07/21 07/07/21 Range/Units 21:15 21:15 WBC 8.8 (4.0-11.0) 10^3/uL RBC 4.21 L (4.50-6.00) x10^6/uL Hgb 13.6 L (14.0-18.0) g/dL Hct 40.3 L (42.0-52.0) % MCV 95.7 (83.0-97.0) fL MCH 32.3 H (27.0-32.0) pg MCHC 33.7 (32.0-36.0) g/dL RDW Coeff of Erica 12.3 (11.0-15.0) % Plt Count 279 (150-400) 10^3/uL Immature Gran % (Auto) 0.1 (0.0-4.9) % Neut % (Auto) 75.0 H (41-71) % Lymph % (Auto) 16.6 L (24-44) % [place] % (Auto) 5.3 (0-10) % Eos % (Auto) 2.3 (0-6) % Baso % (Auto) 0.7 (0-1) % Neut # (Auto) 6.60 (1.80-8.00) x10^3/uL Lymph # (Auto) 1.46 (0.60-5.00) 10^3/uL [place] # (Auto) 0.47 (0.00-1.50) 10^3/uL Eos # (Auto) 0.20 (0.00-1.50) 10^3/uL Baso # (Auto) 0.06 (0.00-0.50) 10^3/uL Immature Gran # (Auto) 0.01 (0.00-0.49) 10^3/uL Sodium 142 (136-145) mEq/L Potassium 4.3 (3.5-5.0) mEq/L Chloride 105 (98-106) mEq/L Carbon Dioxide 28 (21-32) mmol/L BUN 8 (7-18) mg/dL Creatinine 1.0 (0.7-1.3) mg/dL Est Cr Clr Drug Dosing 106.53 mL/min Estimated GFR (MDRD) > 60 (>=60) mL/min Glucose 105 H D (75-99) mg/dL Calcium 9.4 (8.4-10.1) mg/dL Total Bilirubin 1.3 H (0.0-1.0) mg/dL AST 64 H (15-37) U/L ALT 71 (12-78) U/L Alkaline Phosphatase 74 (46-116) U/L C-Reactive Protein 0.6 (0.2-0.8) mg/dL Total Protein 8.3 H (6.4-8.2) g/dL Albumin 4.2 (3.4-5.0) g/dL Amylase 31 (25-115) U/L Lipase 51 L (73-393) U/L Departure - Departure Time of Disposition: 21:40 Disposition: Home, Self-Care 01 Clinical Impression: Abdominal pain Qualifiers: Abdominal location: epigastric Qualified Code(s): R10.13 - Epigastric pain - Discharge Information *PRESCRIPTION DRUG MONITORING PROGRAM REVIEWED*: Not Applicable *COPY OF PRESCRIPTION DRUG MONITORING REPORT IN PATIENT CALLI: Not Applicable Instructions: Abdominal Pain, Adult, [id number] Referrals: PCP,None [Primary Care Provider] - Additional Instructions: 1) Labs overall look excellent tonight, no concerning findings. Liver enzymes and pancreatic enzymes are significantly improved. WBC is normal, no sign of infection 2) Discussed increasing Prilosec to twice a day for 1-2 weeks 3) May use over the counter therapies as well, Pepto-Bismol, etc... 4) If any fevers, bloody stools, worsening of symptoms, etc. advise reevaluation. Sepsis Event Note (ED) - Evaluation Sepsis Screening Result: No Definite Risk - Focused Exam Vital Signs: Vital Signs Temp Pulse Resp BP Pulse Ox 07/07/21 21:17 143/93 H 07/07/21 20:48 96.3 F L 88 16 154/96 H 98 - Problem List & Annotations (1) Abdominal pain SNOMED Code(s): 47916001 Code(s): R10.9 - UNSPECIFIED ABDOMINAL PAIN Status: Acute Priority: High Current Visit: Yes Qualifiers: Abdominal location: generalized Qualified Code(s): R10.84 - Generalized abdominal pain - Assessment/Plan Plan: Laboratory work up was unremarkable today. Discussed exclusion of differential etiologies. Recommend symptomatic cares at this time. Will discharge home. See additional instructions.
== END 2021-07-07 21:50 | disposition home or self-care (01) ==
LOC: CC.ED 20:48
DX: R10.13 Epigastric pain (principal); K21.9 Gastro-esophageal reflux disease without esophagitis; I10 Essential (primary) hypertension; E03.9 Hypothyroidism, unspecified; Z88.0 Allergy status to penicillin; Z79.899 Other long term (current) drug therapy; Z87.891 Personal history of nicotine dependence
CPT/HCPCS: 36415; 80053; 82150; 83690; 85025; 86140; 99284

== ENCOUNTER 2021-08-02 04:15 | Emergency (ER) | payer MEDICAID ==
--- NOTE | 2021-08-02 04:37 | EDM.PDOC ---
ED HPI GENERAL MEDICAL PROBLEM - General Chief Complaint: General Stated Complaint: joint pain Time Seen by Provider: 08/02/21 04:15 Source of Information: Reports: Patient, EMS History Limitations: Reports: No Limitations - History of Present Illness INITIAL COMMENTS - FREE TEXT/NARRATIVE: This is a 46-year-old male patient that presents to the emergency department via [facility]. Patient has had gradual onset of weakness and joint pain over the past couple weeks. He reports history of gout. He has also had recent hospitalizations for pancreatitis. He was restarted on methotrexate and allopurinol about 3 weeks ago. He had not taken these medications for about a year. He was also prescribed tramadol for pain a couple weeks ago in the clinic. Patient states the pain medication is not effective. He reports that he has not been able to get up and the evening complete simple tasks such as using the restroom for about the last day. He denies abdominal pain. He states when the EMS arrived and moved him to the stretcher that he did have some nausea but no nausea at this time. He states his joints throughout his body are extremely painful. He denies any recent use of alcohol. He was admitted about 1 month ago and [place] and treated for pancreatitis and elevated liver enzymes. He was also seen by a surgeon in [place] to evaluate gallbladder, and st ated that the surgeon told him that his gallbladder did not need to be removed and his symptoms are likely related to pancreatitis. Patient is alert and oriented and denies any sort of fall or trauma. Onset: Gradual Duration: Week(s): (3) Location: Reports: Generalized, Other (Joint pain) Quality: Reports: Ache Severity: Moderate Improves with: Reports: None Worsens with: Reports: Movement Associated Symptoms: Reports: Nausea/Vomiting, Weakness. Denies: Confusion, Chest Pain, Cough, Fever/Chills - Related Data Allergies Allergy/AdvReac Type Severity Reaction Status Date / Time Penicillins Allergy Hives Verified 08/02/21 04:33 Home Meds: Home Meds Omeprazole 40 mg PO QAM #14 capsule. 01/17/21 [Rx] amLODIPine [Norvasc] 10 mg PO DAILY #30 tab 05/18/21 [Rx] lisinopriL [Prinivil] 20 mg PO BID #60 tablet 05/18/21 [Rx] Citalopram [Citalopram HBr] 10 mg PO DAILY 08/02/21 [History] Folic Acid 1 tab PO DAILY 08/02/21 [History] Levothyroxine 1 tab PO DAILY 08/02/21 [History] Methotrexate 8 tab PO WEEKLY 08/02/21 [History] hydrOXYzine HCL [hydrOXYzine] 1 tab PO TID 08/02/21 [History] predniSONE [Prednisone] 10 mg PO DAILY #32 tablet 08/02/21 [Rx] Past Medical History Cardiovascular History: Reports: Hypertension Gastrointestinal History: Reports: Cholelithiasis, GERD, Pancreatitis Musculoskeletal History: Reports: Gout, Osteoarthritis, Osteoporosis Psychiatric History: Reports: Addiction, Anxiety Endocrine/Metabolic History: Reports: Hypothyroidism - Past Surgical History GI Surgical History: Reports: Hernia, Abdominal, Hernia, Inguinal Male Surgical History: Reports: Vasectomy Social & Family History - Family History Family Medical History: No Pertinent Family History - Caffeine Use Caffeine Use: Reports: None ED ROS GENERAL - Review of Systems Review Of Systems: See Below Constitutional: Reports: Weakness. Denies: Fever, Chills HEENT: Reports: No Symptoms Respiratory: Denies: Shortness of Breath, Wheezing, Pleuritic Chest Pain, Cough Cardiovascular: Denies: Chest Pain, Dyspnea on Exertion Endocrine: Reports: No Symptoms GI/Abdominal: Reports: Nausea. Denies: Abdominal Pain, Constipation, Diarrhea, Vomiting : Denies: Discharge, Dysuria, Flank Pain, Frequency, Hematuria Musculoskeletal: Reports: Joint Pain, Joint Swelling Skin: Reports: Change in Color (Lower extremities) Neurological: Reports: No Symptoms. Denies: Confusion, Dizziness, Headache Psychiatric: Reports: No Symptoms. Denies: Anxiety, Confusion Hematologic/Lymphatic: Reports: No Symptoms Immunologic: Reports: No Symptoms ED EXAM, GENERAL - Physical Exam Exam: See Below Exam Limited By: No Limitations General Appearance: Alert, WD/WN, Mild Distress, Obese Ears: Normal External Exam, Hearing Grossly Normal Nose: Normal Inspection Throat/Mouth: Normal Inspection, No Airway Compromise Head: Atraumatic, Normocephalic Neck: Normal Inspection, Supple, Non-Tender Respiratory/Chest: No Respiratory Distress, Lungs Clear, Normal Breath Sounds, Chest Non-Tender Cardiovascular: Regular Rate, Rhythm, No Edema, Other (Poor circulation to bilateral lower extremities) GI/Abdominal: Normal Bowel Sounds, Soft, Non-Tender (Male) Exam: Deferred Rectal (Males) Exam: Deferred Extremities: No Pedal Edema, Joint Swelling (Swelling most noted to bilateral wrists especially the right), Arm Pain, Leg Pain Neurological: Alert, Oriented, Normal Cognition Psychiatric: Normal Affect, Normal Mood Skin Exam: Warm, Dry, Intact Course - Vital Signs Last Recorded V/S: Last Vital Signs Temp 97.3 F 08/02/21 04:29 Pulse 100 08/02/21 04:29 Resp 18 08/02/21 04:29 BP 109/69 08/02/21 04:29 Pulse Ox 95 08/02/21 04:29 - Orders/Labs/Meds Orders: Active Orders 24 hr Category Date Time Status methylPREDNISolone Sod Succ [Solu-MEDROL] Med 08/02/21 05:15 Ordered 125 mg IVPUSH Q24H Medication Orders Methylprednisolone Sodium Succinate (Methylprednisolone Sodium Succinate 125 Mg/2 Ml Sdv) 125 mg IVPUSH Q24H ACOSTA Last Admin: 08/02/21 05:18 Dose: 125 mg Documented by: VARUN Labs: Laboratory Tests 08/02/21 08/02/21 Range/Units 04:25 04:25 WBC 9.1 (4.0-11.0) 10^3/uL RBC 3.75 L (4.50-6.00) x10^6/uL Hgb 11.7 L (14.0-18.0) g/dL Hct 33.4 L (42.0-52.0) % MCV 89.1 (83.0-97.0) fL MCH 31.2 (27.0-32.0) pg MCHC 35.0 (32.0-36.0) g/dL RDW Coeff of Erica 12.1 (11.0-15.0) % Plt Count 423 H (150-400) 10^3/uL Immature Gran % (Auto) 0.7 (0.0-4.9) % Neut % (Auto) 72.9 H (41-71) % Lymph % (Auto) 16.2 L (24-44) % Barry % (Auto) 6.6 (0-10) % Eos % (Auto) 2.7 (0-6) % Baso % (Auto) 0.9 (0-1) % Neut # (Auto) 6.65 (1.80-8.00) x10^3/uL Lymph # (Auto) 1.48 (0.60-5.00) 10^3/uL Barry # (Auto) 0.60 (0.00-1.50) 10^3/uL Eos # (Auto) 0.25 (0.00-1.50) 10^3/uL Baso # (Auto) 0.08 (0.00-0.50) 10^3/uL Immature Gran # (Auto) 0.06 (0.00-0.49) 10^3/uL ESR > 140 H (0-15) mm/hr Sodium 139 (136-145) mEq/L Potassium 3.9 (3.5-5.0) mEq/L Chloride 102 (98-106) mEq/L Carbon Dioxide 27 (21-32) mmol/L BUN 15 D (7-18) mg/dL Creatinine 1.2 (0.7-1.3) mg/dL Est Cr Clr Drug Dosing 88.78 mL/min Estimated GFR (MDRD) > 60 (>=60) mL/min Glucose 136 H D (75-99) mg/dL Uric Acid 5.3 (3.5-7.2) mg/dL Calcium 9.7 (8.4-10.1) mg/dL Total Bilirubin 1.0 (0.0-1.0) mg/dL AST 29 (15-37) U/L ALT 27 (12-78) U/L Alkaline Phosphatase 105 (46-116) U/L Creatine Kinase 21 L (35-232) U/L C-Reactive Protein 10.6 H (0.2-0.8) mg/dL Total Protein 8.0 (6.4-8.2) g/dL Albumin 2.9 L (3.4-5.0) g/dL Lipase 59 L (73-393) U/L Meds: Medications Generic Name Dose Route Start Last Admin Trade Name Freq PRN Reason Stop Dose Admin Methylprednisolone Sodium Succinate 125 mg 08/02/21 05:15 08/02/21 05:18 Methylprednisolone Sodium Succinate 125 Mg/2 Ml Sdv IVPUSH 125 mg Q24H ACOSTA Administration Discontinued Medications Generic Name Dose Route Start Last Admin Trade Name Freq PRN Reason Stop Dose Admin Methylprednisolone Sodium Succinate Confirm 08/02/21 04:52 08/02/21 05:20 Methylprednisolone Sodium Succinate 125 Mg/2 Ml Sdv Administered 08/02/21 04:53 Not Given Dose 125 mg .ROUTE .STK-MED ONE - Re-Assessments/Exams Free Text/Narrative Re-Assessment/Exam: Mr. Carlos is a 46-year-old male patient that presented to the emergency department via [facility]. See HPI. Patient with history of arthritis and gout. Obtained labs to include CBC, CRP, CMP, uric acid, lipase, sedimentation rate, and CK level. CBC unremarkable. CMP shows an elevated glucose of 136, ALT and AST within normal range, creatinine 1.19 with a BUN of 15. CRP is elevated at 10.6. Lipase 59. Uric acid 5.3. Sed rate greater than 140. Solu-Medrol 125 mg administered IV push in the emergency department. Discussed findings that can be attributed to his rheumatoid arthritis and possibly polymyalgia rheumatica. Plan will be to discharge patient home. Prednisone has been E prescribed to the pharmacy in tapering doses 40 mg x 3 days, 30 mg x 3 days, 20 mg x 3 days, 10 mg x 3 days, and 5 mg x 3 days. Patient should be reevaluated with his primary care provider in 2 weeks for a recheck sedimentation rate. Call or return with any questions, concerns, or worsening symptoms. Departure - Departure Time of Disposition: 05:24 Disposition: Home, Self-Care 01 Condition: Fair Clinical Impression: Rheumatoid arthritis flare - Discharge Information *PRESCRIPTION DRUG MONITORING PROGRAM REVIEWED*: Not Applicable *COPY OF PRESCRIPTION DRUG MONITORING REPORT IN PATIENT CALLI: Not Applicable Prescriptions: predniSONE [Prednisone] 10 mg PO DAILY #32 tablet Instructions: Rheumatoid Arthritis Referrals: Angelo Tracey MD [Primary Care Provider] - Forms: ED Department Discharge Additional Instructions: 1. Take prescription prednisone following taper instructions. supervisor varnish the prednisone as it was e-prescribed to your pharmacy. 2. Follow-up with your primary care provider in 2 weeks. Recheck sedimentation rate at that time. 3. Continue methotrexate, tramadol, and allopurinol as previously prescribed by your primary care provider. 4. Activity as tolerated. 5. Call or return with questions, concerns, or worsening symptoms. Sepsis Event Note (ED) - Focused Exam Vital Signs: Vital Signs Temp Pulse Resp BP Pulse Ox 08/02/21 04:29 97.3 F 100 18 109/69 95 - My Orders Last 24 Hours: My Active Orders 08/02/21 05:15 methylPREDNISolone Sod Succ [Solu-MEDROL] 125 mg IVPUSH Q24H - Assessment/Plan Last 24 Hours: My Active Orders 08/02/21 05:15 methylPREDNISolone Sod Succ [Solu-MEDROL] 125 mg IVPUSH Q24H
[2021-08-02] MEDS ORDERED: methylPREDNISolone Sodium Succinate 125 MG/2 ML SDV ONE (04:52)
[2021-08-02 05:15] LABS: CHLORIDE,CL 102 mEq/L (98-106); SODIUM,NA 139 mEq/L (136-145)
[2021-08-02] MEDS ORDERED: methylPREDNISolone Sodium Succinate 125 MG/2 ML SDV IVPUSH SCH (05:15)
== END 2021-08-02 06:15 | disposition home or self-care (01) ==
LOC: SUPCPDRO 04:15 → CC.ED 04:15
DX: M06.9 Rheumatoid arthritis, unspecified (principal); I10 Essential (primary) hypertension; K21.9 Gastro-esophageal reflux disease without esophagitis; E03.9 Hypothyroidism, unspecified; M10.9 Gout, unspecified; Z88.0 Allergy status to penicillin; Z79.899 Other long term (current) drug therapy
CPT/HCPCS: 80053; 82550; 83690; 84550; 85025; 85651; 86140; 96374; 99284; J2930; 36415

== ENCOUNTER 2022-11-03 18:56 | Emergency (ER) | payer MEDICAID ==
[2022-11-03 19:45] LABS: PTT,PARTIAL THROMBOPLSTIN TIME 24.7 SEC (20.0-30.0)
== END 2022-11-03 20:40 | disposition home or self-care (01) ==
LOC: CC.ED 18:56
DX: R07.89 Other chest pain (principal); F10.10 Alcohol abuse, uncomplicated; E83.42 Hypomagnesemia; I10 Essential (primary) hypertension; K21.9 Gastro-esophageal reflux disease without esophagitis; E03.9 Hypothyroidism, unspecified; Z88.0 Allergy status to penicillin; Z79.899 Other long term (current) drug therapy; Z87.891 Personal history of nicotine dependence; Z20.822 Contact with and (suspected) exposure to COVID-19
CPT/HCPCS: 36415; 71046; 80053; 82150; 83690; 83735; 84484; 85025; 85610; 85730; 93005; 93010; 99284; 99285; U0002

== ENCOUNTER 2022-12-01 14:26 | Emergency (ER) | payer MEDICAID ==
[2022-12-01] MEDS ORDERED: Sodium Chloride 0.9% 1,000 ML IV STA (14:29)
[2022-12-01] MEDS ORDERED: Morphine 2 MG/ML SYRINGE IVPUSH ONE (14:30)
[2022-12-01] MEDS ORDERED: Ondansetron 4 MG/2 ML SDV IVPUSH STA (14:30)
[2022-12-01 15:26] LABS: AMPHETAMINES,URINE NEGATIVE (NEGATIVE); BARBITURATES,URINE NEGATIVE (NEGATIVE); BENZODIAZEPINE,URINE NEGATIVE (NEGATIVE); MDMA (ECSTASY), URINE NEGATIVE (NEGATIVE); METHADONE,URINE NEGATIVE (NEGATIVE); METHAMPHETAMINES,URINE NEGATIVE (NEGATIVE); OPIATES,URINE NEGATIVE (NEGATIVE); OXYCODONE,URINE NEGATIVE (NEGATIVE); PHENCYCLIDINE,URINE NEGATIVE (NEGATIVE); TCA,URINE NEGATIVE (NEGATIVE)
[2022-12-01] MEDS ORDERED: Iopamidol 755 Mg/ML 100 ML Bottle IVPUSH ONE (15:30)
== END 2022-12-01 17:07 | disposition home or self-care (01) ==
LOC: CC.ED 14:26
DX: K29.20 Alcoholic gastritis without bleeding (principal); I10 Essential (primary) hypertension; K21.9 Gastro-esophageal reflux disease without esophagitis; E03.9 Hypothyroidism, unspecified; Z88.0 Allergy status to penicillin; Z79.899 Other long term (current) drug therapy
CPT/HCPCS: 36415; 74177; 80053; 80305-QW; 81001; 83690; 83735; 85025; 87086; 87088; 87186; 96361; 96374; 96375; 99284; 99284-25; J2270; J2405; J7030; Q9967

== ENCOUNTER 2022-12-05 15:00 | Inpatient (IN) | payer MEDICAID ==
[2022-12-05] MEDS ORDERED: Sodium Chloride 0.9% 1,000 ML IV ONE (15:16)
[2022-12-05] MEDS ORDERED: Iopamidol 755 Mg/ML 100 ML Bottle IVPUSH ONE (15:41)
[2022-12-05] MEDS ORDERED: HYDROmorphone 1 MG/ML Syringe IVPUSH PRN (17:20)
[2022-12-05] MEDS ORDERED: Ibuprofen 200 MG Tab PO PRN (17:20)
[2022-12-05] MEDS ORDERED: Ondansetron 4 MG/2 ML SDV IV PRN (17:20)
[2022-12-05] MEDS: Sodium Chloride 0.9% 1,000 ML IV SCH ×2 (17:27→20:05)
[2022-12-05] MEDS ORDERED: VANCOmycin 2 GM/400 ML 400 ML IV ONE (17:30)
[2022-12-05] MEDS: Acetaminophen 325 MG Tab PO PRN (17:36)
[2022-12-05] MEDS ORDERED: hydrOXYzine HCl 25 MG Tab PO PRN (17:42)
[2022-12-05] MEDS: Lisinopril 20 MG Tab PO SCH (20:05)
[2022-12-05] MEDS: traMADol 50 MG Tab PO PRN (20:13)
[2022-12-05] MEDS: Ondansetron 4 MG Tab.DIS PO PRN (20:13)
[2022-12-05] MEDS: VANCOmycin 2 GM/400 ML 400 ML IV SCH ×2 (20:52→20:53)
[2022-12-06] MEDS: VANCOmycin 2 GM/400 ML 400 ML IV SCH ×3 (00:40→16:34)
[2022-12-06] MEDS: Lisinopril 20 MG Tab PO SCH ×2 (07:50→19:27)
[2022-12-06] MEDS: Levothyroxine 50 MCG Tab PO SCH (07:50)
[2022-12-06] MEDS: Folic Acid 1 MG Tab PO SCH (07:56)
[2022-12-06] MEDS: Citalopram 10 MG Tab PO SCH (07:56)
[2022-12-06] MEDS: Pantoprazole 40 MG Tab.CR PO SCH (07:56)
[2022-12-06] MEDS: Loratadine 10 MG Tab PO SCH (07:56)
[2022-12-06] MEDS: amLODIPine 10 MG Tab PO SCH (07:59)
[2022-12-06] MEDS ORDERED: Non-Formulary Medication 1 Each (Omeprazole [Omeprazole] 40 MG Capsule.Dr) PO SCH (08:00)
[2022-12-06] MEDS ORDERED: HYDROmorphone 0.5 MG/0.5 ML Syringe IVPUSH PRN (08:26)
[2022-12-06] MEDS: Ondansetron 4 MG Tab.DIS PO PRN ×2 (09:42→15:28)
[2022-12-06] MEDS: traMADol 50 MG Tab PO PRN ×2 (09:45→15:27)
[2022-12-06 11:36] LABS: CORONAVIRUS COVID-19 NAA POSITIVE (NEGATIVE); RESPIRATORY SYNCYTIAL VIR NAA NEGATIVE (NEGATIVE)
[2022-12-06] MEDS: Enoxaparin 40 MG/0.4 ML Syringe SUBCUT SCH (12:38)
[2022-12-06] MEDS: Sodium Chloride 0.9% 1,000 ML IV SCH (19:40)
[2022-12-07] MEDS: VANCOmycin 2 GM/400 ML 400 ML IV SCH ×2 (00:29→09:13)
[2022-12-07] MEDS: traMADol 50 MG Tab PO PRN (04:16)
[2022-12-07] MEDS: Levothyroxine 50 MCG Tab PO SCH (06:03)
[2022-12-07] MEDS: Pantoprazole 40 MG Tab.CR PO SCH (06:03)
[2022-12-07] MEDS: Sodium Chloride 0.9% 1,000 ML IV SCH (06:36)
[2022-12-07] MEDS: Citalopram 10 MG Tab PO SCH (07:44)
[2022-12-07] MEDS: Folic Acid 1 MG Tab PO SCH (07:44)
[2022-12-07] MEDS: Loratadine 10 MG Tab PO SCH (07:45)
[2022-12-07] MEDS: Lisinopril 20 MG Tab PO SCH ×2 (07:45→19:36)
[2022-12-07] MEDS: amLODIPine 10 MG Tab PO SCH (07:45)
[2022-12-07] MEDS: Enoxaparin 40 MG/0.4 ML Syringe SUBCUT SCH (11:54)
[2022-12-07] MEDS ORDERED: Calcium Carbonate 500 MG Tab.Chew PO PRN (16:11)
[2022-12-07] MEDS: VANCOmycin 1.5 GM/300 ML 1.5 GM in Premix Bag 1 BAG IV SCH (20:46)
[2022-12-08] MEDS: Sodium Chloride 0.9% 1,000 ML IV SCH (02:18)
[2022-12-08] MEDS: Pantoprazole 40 MG Tab.CR PO SCH (06:43)
[2022-12-08] MEDS: Levothyroxine 50 MCG Tab PO SCH (06:43)
[2022-12-08] MEDS: Loratadine 10 MG Tab PO SCH (07:38)
[2022-12-08] MEDS: Folic Acid 1 MG Tab PO SCH (07:38)
[2022-12-08] MEDS: Citalopram 10 MG Tab PO SCH (07:38)
[2022-12-08] MEDS: Lisinopril 20 MG Tab PO SCH ×2 (07:39→19:13)
[2022-12-08] MEDS: amLODIPine 10 MG Tab PO SCH (07:39)
[2022-12-08] MEDS: Acetaminophen 325 MG Tab PO PRN (07:44)
[2022-12-08] MEDS: VANCOmycin 1.5 GM/300 ML 1.5 GM in Premix Bag 1 BAG IV SCH ×2 (08:38→20:39)
[2022-12-08] MEDS: Enoxaparin 40 MG/0.4 ML Syringe SUBCUT SCH (12:00)
[2022-12-09] MEDS: Sodium Chloride 0.9% 1,000 ML IV SCH (02:43)
[2022-12-09] MEDS: Levothyroxine 50 MCG Tab PO SCH (06:53)
[2022-12-09] MEDS: Pantoprazole 40 MG Tab.CR PO SCH (06:54)
[2022-12-09] MEDS: Folic Acid 1 MG Tab PO SCH (07:54)
[2022-12-09] MEDS: Lisinopril 20 MG Tab PO SCH (07:54)
[2022-12-09] MEDS: amLODIPine 10 MG Tab PO SCH (07:54)
[2022-12-09] MEDS: Loratadine 10 MG Tab PO SCH (07:54)
[2022-12-09] MEDS: Citalopram 10 MG Tab PO SCH (07:54)
[2022-12-09] MEDS: VANCOmycin 1.5 GM/300 ML 1.5 GM in Premix Bag 1 BAG IV SCH (09:32)
[2022-12-09] MEDS: Enoxaparin 40 MG/0.4 ML Syringe SUBCUT SCH (12:21)
== END 2022-12-09 13:00 | disposition home or self-care (01) | DRG 602 ==
LOC: CC.ED 15:00 → CC.MS 16:36 → UNDOADMIN 16:36 → CC.MS 16:38
PROVIDERS: ADMIT Nurse Practitioner Family; ATTEND Nurse Practitioner Family
DX: L03.116 Cellulitis of left lower limb (principal); J18.9 Pneumonia, unspecified organism; U07.1 COVID-19; N39.0 Urinary tract infection, site not specified; Z68.44 Body mass index [BMI] 60.0-69.9, adult; B95.62 Methicillin resistant Staphylococcus aureus infection as the cause of diseases classified elsewhere; I10 Essential (primary) hypertension; K21.9 Gastro-esophageal reflux disease without esophagitis; M19.90 Unspecified osteoarthritis, unspecified site; M10.9 Gout, unspecified; M81.0 Age-related osteoporosis without current pathological fracture; F41.9 Anxiety disorder, unspecified; E86.0 Dehydration; E66.01 Morbid (severe) obesity due to excess calories; E03.9 Hypothyroidism, unspecified; Z98.890 Other specified postprocedural states; Z98.52 Vasectomy status; Z87.891 Personal history of nicotine dependence; Z88.0 Allergy status to penicillin
CPT/HCPCS: 0241U; 36415; 74177; 80053; 80202; 81001; 83605; 85025; 85046; 86140; 86308; 87040; 87070; 87077; 87186; 96360; 99223; 99232; 99233; 99238; 99285-25; A9270-GY; J1650; J3370; J7030; Q9967

== ENCOUNTER 2023-01-01 09:29 | Observation (INO) | payer MEDICAID ==
[2023-01-01 09:45] LABS: BASOPHILS ABSOLUTE AUTO 0.03 10^3/uL (0.00-0.50); BASOPHILS PERCENT AUTO 0.4 % (0-1); EOSINOPHILS ABSOLUTE AUTO 0.02 10^3/uL (0.00-1.50); EOSINOPHILS PERCENT AUTO 0.3 % (0-6); HEMATOCRIT 42.6 % (42.0-52.0); HEMOGLOBIN 14.8 g/dL (14.0-18.0); IMMATURE GRAN ABSOLUTE AUTO 0.01 10^3/uL (0.00-0.49); IMMATURE GRAN PERCENT AUTO 0.1 % (0.0-4.9); LYMPHOCYTES ABSOLUTE AUTO 0.72 10^3/uL (0.60-5.00); LYMPHOCYTES PERCENT AUTO 9.7 % (24-44); MEAN CORPUSCULAR HEMOGLOBIN 32.2 pg (27.0-32.0); MEAN CORPUSCULAR HGB CONC 34.7 g/dL (32.0-36.0); MEAN CORPUSCULAR VOLUME 92.8 fL (83.0-97.0); MONOCYTES ABSOLUTE AUTO 0.53 10^3/uL (0.00-1.50); MONOCYTES PERCENT AUTO 7.1 % (0-10); NEUTROPHILS ABSOLUTE AUTO 6.12 x10^3/uL (1.80-8.00); NEUTROPHILS PERCENT AUTO 82.4 % (41-71); PLATELET COUNT,PLT 178 10^3/uL (150-400); RED BLOOD CELL COUNT 4.59 x10^6/uL (4.50-6.00); WHITE BLOOD CELL COUNT,WBC 7.4 10^3/uL (4.0-11.0)
[2023-01-01 10:02] LABS: ALANINE AMINOTRANSFERASE,ALT 156 U/L (12-78); ALBUMIN 3.8 g/dL (3.4-5.0); ALKALINE PHOSPHATASE 98 U/L (46-116); ASPARTATE AMNIOTRANSFERASE,AST 152 U/L (15-37); BILIRUBIN TOTAL 0.8 mg/dL (0.0-1.0); BLOOD UREA NITROGEN,BUN 9 mg/dL (7-18); CALCIUM 9.6 mg/dL (8.4-10.1); CARBON DIOXIDE,CO2 21 mmol/L (21-32); CHLORIDE,CL 94 mEq/L (98-106); CREATININE 1.5 mg/dL (0.7-1.3); EST CRCL DRUG DOSING (CG) 70.28 mL/min; ETHANOL BLOOD MEDICAL 34 mg/dL (0-3); GLUCOSE RANDOM 168 mg/dL (75-99); MAGNESIUM 1.1 mg/dL (1.8-2.4); POTASSIUM,K 3.1 mEq/L (3.5-5.0); PROTEIN TOTAL,TP 8.1 g/dL (6.4-8.2); SODIUM,NA 136 mEq/L (136-145)
[2023-01-01 10:03] LABS: C-REACTIVE PROTEIN < 0.2 mg/dL (0.2-0.8); ESTIMATED GFR 58 mL/min (>=60)
[2023-01-01] MEDS ORDERED: LORazepam 2 MG/ML Syringe IVPUSH ONE (10:07)
[2023-01-01] MEDS ORDERED: Sodium Chloride 0.9% 1,000 ML IV ONE (10:07)
[2023-01-01] MEDS ORDERED: Folic Acid 1 MG, Multivitamins 1 TAB, Thiamine 100 MG, Magnesium Oxide 500 MG PO ONE ×4 (10:08)
[2023-01-01] MEDS ORDERED: Ondansetron 4 MG/2 ML SDV IVPUSH STA (10:28)
[2023-01-01] MEDS ORDERED: Potassium Chloride 10 MEQ Tab.ER PO ONE (10:30)
[2023-01-01] MEDS ORDERED: Multivitamin Tab ONE (10:41)
[2023-01-01] MEDS ORDERED: Thiamine 100 MG Tab ONE (10:41)
[2023-01-01] MEDS ORDERED: Ondansetron 4 MG Tab.DIS PO PRN (11:06)
[2023-01-01] MEDS ORDERED: Acetaminophen 325 MG Tab PO PRN (11:06)
[2023-01-01] MEDS: Sodium Chloride 0.9% 1,000 ML IV SCH ×2 (11:22→21:31)
[2023-01-01] MEDS: LORazepam 2 MG/ML Syringe IVPUSH PRN ×6 (11:25→23:12)
[2023-01-01] MEDS ORDERED: traMADol 50 MG Tab PO PRN (11:35)
[2023-01-01] MEDS: Ondansetron 4 MG/2 ML SDV IV PRN ×2 (14:39→19:42)
[2023-01-01] MEDS: Lisinopril 20 MG Tab PO SCH (19:42)
[2023-01-02] MEDS: LORazepam 2 MG/ML Syringe IVPUSH PRN ×2 (03:06→15:17)
[2023-01-02] MEDS: Levothyroxine 50 MCG Tab PO SCH (06:25)
[2023-01-02] MEDS: Pantoprazole 40 MG Tab.CR PO SCH (06:25)
[2023-01-02 07:28] LABS: ALBUMIN 3.1 g/dL (3.4-5.0); CALCIUM 8.3 mg/dL (8.4-10.1); CREATININE 1.3 mg/dL (0.7-1.3); EST CRCL DRUG DOSING (CG) 81.1 mL/min; MAGNESIUM 1.4 mg/dL (1.8-2.4); POTASSIUM,K 3.7 mEq/L (3.5-5.0); PROTEIN TOTAL,TP 6.7 g/dL (6.4-8.2)
[2023-01-02 07:32] LABS: BASOPHILS ABSOLUTE AUTO 0.03 10^3/uL (0.00-0.50); BASOPHILS PERCENT AUTO 0.6 % (0-1); EOSINOPHILS ABSOLUTE AUTO 0.05 10^3/uL (0.00-1.50); EOSINOPHILS PERCENT AUTO 0.9 % (0-6); HEMATOCRIT 40.1 % (42.0-52.0); HEMOGLOBIN 13.2 g/dL (14.0-18.0); LYMPHOCYTES ABSOLUTE AUTO 0.89 10^3/uL (0.60-5.00); LYMPHOCYTES PERCENT AUTO 16.5 % (24-44); MEAN CORPUSCULAR HEMOGLOBIN 31.4 pg (27.0-32.0); MEAN CORPUSCULAR HGB CONC 32.9 g/dL (32.0-36.0); MEAN CORPUSCULAR VOLUME 95.5 fL (83.0-97.0); MONOCYTES ABSOLUTE AUTO 0.26 10^3/uL (0.00-1.50); MONOCYTES PERCENT AUTO 4.8 % (0-10); NEUTROPHILS ABSOLUTE AUTO 4.18 x10^3/uL (1.80-8.00); NEUTROPHILS PERCENT AUTO 77.2 % (41-71); PLATELET COUNT,PLT 107 10^3/uL (150-400); WHITE BLOOD CELL COUNT,WBC 5.4 10^3/uL (4.0-11.0)
[2023-01-02] MEDS: Loratadine 10 MG Tab PO SCH (07:53)
[2023-01-02] MEDS: Citalopram 10 MG Tab PO SCH (07:54)
[2023-01-02] MEDS: Lisinopril 20 MG Tab PO SCH ×2 (07:55→19:26)
[2023-01-02] MEDS: amLODIPine 10 MG Tab PO SCH (07:56)
[2023-01-02] MEDS: Sodium Chloride 0.9% 1,000 ML IV SCH (07:56)
[2023-01-02] MEDS: LORazepam 0.5 MG Tab PO PRN ×3 (07:56→21:28)
[2023-01-02] MEDS ORDERED: Folic Acid 1 MG Tab PO SCH (08:00)
[2023-01-02] MEDS ORDERED: Multivitamin Tab ONE (10:46)
[2023-01-02] MEDS ORDERED: Thiamine 100 MG Tab ONE (10:46)
[2023-01-02] MEDS: Folic Acid 1 MG, Multivitamins 1 TAB, Thiamine 100 MG, Magnesium Oxide 500 MG PO SCH ×4 (10:47)
[2023-01-02] MEDS: Ondansetron 4 MG/2 ML SDV IV PRN (17:19)
[2023-01-03] MEDS: Levothyroxine 50 MCG Tab PO SCH (06:25)
[2023-01-03] MEDS: Pantoprazole 40 MG Tab.CR PO SCH (06:25)
[2023-01-03] MEDS: Folic Acid 1 MG, Multivitamins 1 TAB, Thiamine 100 MG, Magnesium Oxide 500 MG PO SCH ×4 (07:45)
[2023-01-03] MEDS: Loratadine 10 MG Tab PO SCH (07:45)
[2023-01-03] MEDS: amLODIPine 10 MG Tab PO SCH (07:46)
[2023-01-03] MEDS: Lisinopril 20 MG Tab PO SCH (07:46)
[2023-01-03] MEDS: Citalopram 10 MG Tab PO SCH (07:46)
[2023-01-03 09:13] LABS: BASOPHILS PERCENT AUTO 0.7 % (0-1); EOSINOPHILS PERCENT AUTO 3.3 % (0-6); HEMATOCRIT 38.5 % (42.0-52.0); HEMOGLOBIN 12.7 g/dL (14.0-18.0); LYMPHOCYTES PERCENT AUTO 18.2 % (24-44); MEAN CORPUSCULAR HEMOGLOBIN 31.8 pg (27.0-32.0); MEAN CORPUSCULAR VOLUME 96.3 fL (83.0-97.0); MONOCYTES PERCENT AUTO 5.9 % (0-10); NEUTROPHILS PERCENT AUTO 71.7 % (41-71); PLATELET COUNT,PLT 100 10^3/uL (150-400); WHITE BLOOD CELL COUNT,WBC 4.2 10^3/uL (4.0-11.0)
[2023-01-03 09:14] LABS: ALBUMIN 3.1 g/dL (3.4-5.0); BASOPHILS ABSOLUTE AUTO 0.03 10^3/uL (0.00-0.50); BILIRUBIN TOTAL 0.8 mg/dL (0.0-1.0); CALCIUM 8.3 mg/dL (8.4-10.1); CREATININE 1.2 mg/dL (0.7-1.3); EOSINOPHILS ABSOLUTE AUTO 0.14 10^3/uL (0.00-1.50); EST CRCL DRUG DOSING (CG) 87.85 mL/min; LYMPHOCYTES ABSOLUTE AUTO 0.77 10^3/uL (0.60-5.00); MAGNESIUM 1.6 mg/dL (1.8-2.4); MONOCYTES ABSOLUTE AUTO 0.25 10^3/uL (0.00-1.50); NEUTROPHILS ABSOLUTE AUTO 3.02 x10^3/uL (1.80-8.00); POTASSIUM,K 3.7 mEq/L (3.5-5.0)
== END 2023-01-03 10:24 | disposition home or self-care (01) ==
LOC: CC.ED 09:29 → CC.MS 10:29 → UNDOADMOB 10:29 → CC.MS 11:06
PROVIDERS: ADMIT Nurse Practitioner Family; ATTEND Nurse Practitioner Family
DX: F10.139 Alcohol abuse with withdrawal, unspecified (principal); E87.6 Hypokalemia; N17.9 Acute kidney failure, unspecified; E83.42 Hypomagnesemia; I10 Essential (primary) hypertension; K21.9 Gastro-esophageal reflux disease without esophagitis; M10.9 Gout, unspecified; M19.90 Unspecified osteoarthritis, unspecified site; E03.9 Hypothyroidism, unspecified; F41.9 Anxiety disorder, unspecified; Z79.890 Hormone replacement therapy; Z79.899 Other long term (current) drug therapy; Z88.0 Allergy status to penicillin; Y90.1 Blood alcohol level of 20-39 mg/100 ml
CPT/HCPCS: 36415; 71045; 80053; 80307; 83735; 84484; 85025; 86140; 93005; 93010; 96361; 96374; 96375; 96376; 99223; 99233; 99239; 99285-25; A9270-GY; G0378; J2060; J2405; J7030

== ENCOUNTER 2023-01-18 10:25 | Observation (INO) | payer MEDICAID ==
[2023-01-18] MEDS ORDERED: Sodium Chloride 0.9% 10 ML Syringe FLUSH PRN (11:09)
[2023-01-18 11:23] LABS: BASOPHILS ABSOLUTE AUTO 0.05 10^3/uL (0.00-0.50); BASOPHILS PERCENT AUTO 1.2 % (0-1); EOSINOPHILS ABSOLUTE AUTO 0.03 10^3/uL (0.00-1.50); EOSINOPHILS PERCENT AUTO 0.7 % (0-6); HEMOGLOBIN 13.9 g/dL (14.0-18.0); IMMATURE GRAN ABSOLUTE AUTO 0.01 10^3/uL (0.00-0.49); IMMATURE GRAN PERCENT AUTO 0.2 % (0.0-4.9); LYMPHOCYTES PERCENT AUTO 18.6 % (24-44); MEAN CORPUSCULAR HEMOGLOBIN 31.7 pg (27.0-32.0); MEAN CORPUSCULAR HGB CONC 33.9 g/dL (32.0-36.0); MEAN CORPUSCULAR VOLUME 93.4 fL (83.0-97.0); MONOCYTES ABSOLUTE AUTO 0.28 10^3/uL (0.00-1.50); MONOCYTES PERCENT AUTO 6.5 % (0-10); NEUTROPHILS ABSOLUTE AUTO 3.12 x10^3/uL (1.80-8.00); NEUTROPHILS PERCENT AUTO 72.8 % (41-71); PLATELET COUNT,PLT 126 10^3/uL (150-400); RED BLOOD CELL COUNT 4.39 x10^6/uL (4.50-6.00); WHITE BLOOD CELL COUNT,WBC 4.3 10^3/uL (4.0-11.0)
[2023-01-18 11:24] LABS: APPEARANCE,URINE CLEAR (CLEAR); BILIRUBIN,URINE NEGATIVE (NEGATIVE); COLOR,URINE YELLOW (YELLOW); GLUCOSE,URINE NEGATIVE (NEGATIVE); KETONES,URINE NEGATIVE (NEGATIVE); LEUKOCYTE ESTERASE,URINE NEGATIVE (NEGATIVE); NITRITE,URINE NEGATIVE (NEGATIVE); OCCULT BLOOD,URINE SMALL (NEGATIVE); PROTEIN,URINE NEGATIVE (NEGATIVE); UROBILINOGEN,URINE 0.2 EU/dL (0.2-1.0)
[2023-01-18] MEDS ORDERED: Ondansetron 4 MG/2 ML SDV IVPUSH STA (11:25)
[2023-01-18] MEDS ORDERED: Sodium Chloride 0.9% 1,000 ML IV ONE (11:25)
[2023-01-18 11:35] LABS: BACTERIA,URINE RARE /HPF (NOT SEEN); EPITHELIAL CELLS,URINE OCCASIONAL /HPF (NOT SEEN); WBC,URINE 0-5 /HPF (0-5)
[2023-01-18 11:36] LABS: ALANINE AMINOTRANSFERASE,ALT 145 U/L (12-78); ALBUMIN 3.6 g/dL (3.4-5.0); ALKALINE PHOSPHATASE 78 U/L (46-116); ASPARTATE AMNIOTRANSFERASE,AST 148 U/L (15-37); BILIRUBIN TOTAL 0.7 mg/dL (0.0-1.0); BLOOD UREA NITROGEN,BUN 6 mg/dL (7-18); CALCIUM 8.5 mg/dL (8.4-10.1); CARBON DIOXIDE,CO2 30 mmol/L (21-32); CHLORIDE,CL 95 mEq/L (98-106); CREATININE 1.1 mg/dL (0.7-1.3); EST CRCL DRUG DOSING (CG) 94.83 mL/min; ETHANOL BLOOD MEDICAL 146 mg/dL (0-3); GLUCOSE RANDOM 119 mg/dL (75-99); LIPASE 162 U/L (73-393); POTASSIUM,K 4.1 mEq/L (3.5-5.0); PROTEIN TOTAL,TP 7.6 g/dL (6.4-8.2); SODIUM,NA 136 mEq/L (136-145)
[2023-01-18] MEDS ORDERED: LORazepam 2 MG/ML Syringe IVPUSH STA (11:36)
[2023-01-18 11:37] LABS: C-REACTIVE PROTEIN < 0.2 mg/dL (0.2-0.8); ESTIMATED GFR 84 mL/min (>=60)
[2023-01-18] MEDS ORDERED: Iopamidol 755 Mg/ML 100 ML Bottle IVPUSH ONE (11:45)
[2023-01-18] MEDS ORDERED: Folic Acid 1 MG, Multivitamins 1 TAB, Thiamine 100 MG, Magnesium Oxide 500 MG PO ONE ×4 (13:16)
[2023-01-18] MEDS ORDERED: Ibuprofen 200 MG Tab PO PRN (13:16)
[2023-01-18] MEDS ORDERED: hydrOXYzine HCl 25 MG Tab PO PRN (13:22)
[2023-01-18] MEDS: Sodium Chloride 0.9% 1,000 ML IV SCH ×2 (14:15→23:04)
[2023-01-18] MEDS: LORazepam 2 MG/ML Syringe IVPUSH PRN ×2 (15:00→18:50)
[2023-01-18] MEDS: Ondansetron 4 MG Tab.DIS PO PRN (18:50)
[2023-01-18] MEDS: Enoxaparin 40 MG/0.4 ML Syringe SUBCUT SCH (19:30)
[2023-01-18] MEDS: Lisinopril 20 MG Tab PO SCH (19:31)
[2023-01-18] MEDS: traMADol 50 MG Tab PO PRN (23:11)
[2023-01-19] MEDS: Levothyroxine 50 MCG Tab PO SCH (06:01)
[2023-01-19] MEDS: Pantoprazole 40 MG Tab.CR PO SCH (06:01)
[2023-01-19] MEDS: Ondansetron 4 MG Tab.DIS PO PRN ×2 (07:21→16:09)
[2023-01-19] MEDS: traMADol 50 MG Tab PO PRN (07:22)
[2023-01-19 07:25] LABS: BASOPHILS ABSOLUTE AUTO 0.02 10^3/uL (0.00-0.50); BASOPHILS PERCENT AUTO 0.7 % (0-1); EOSINOPHILS ABSOLUTE AUTO 0.06 10^3/uL (0.00-1.50); EOSINOPHILS PERCENT AUTO 2.1 % (0-6); HEMATOCRIT 41.5 % (42.0-52.0); HEMOGLOBIN 13.3 g/dL (14.0-18.0); IMMATURE GRAN ABSOLUTE AUTO 0.01 10^3/uL (0.00-0.49); IMMATURE GRAN PERCENT AUTO 0.3 % (0.0-4.9); LYMPHOCYTES ABSOLUTE AUTO 0.54 10^3/uL (0.60-5.00); LYMPHOCYTES PERCENT AUTO 18.8 % (24-44); MEAN CORPUSCULAR HEMOGLOBIN 31.7 pg (27.0-32.0); MEAN CORPUSCULAR VOLUME 98.8 fL (83.0-97.0); MONOCYTES ABSOLUTE AUTO 0.24 10^3/uL (0.00-1.50); MONOCYTES PERCENT AUTO 8.3 % (0-10); NEUTROPHILS ABSOLUTE AUTO 2.01 x10^3/uL (1.80-8.00); NEUTROPHILS PERCENT AUTO 69.8 % (41-71); PLATELET COUNT,PLT 106 10^3/uL (150-400); WHITE BLOOD CELL COUNT,WBC 2.9 10^3/uL (4.0-11.0)
[2023-01-19] MEDS: Loratadine 10 MG Tab PO SCH (07:28)
[2023-01-19] MEDS: Folic Acid 1 MG Tab PO SCH (07:28)
[2023-01-19] MEDS: Thiamine 100 MG Tab PO SCH (07:28)
[2023-01-19] MEDS: Multivitamin Tab PO SCH (07:28)
[2023-01-19] MEDS: Citalopram 10 MG Tab PO SCH (07:28)
[2023-01-19] MEDS: amLODIPine 10 MG Tab PO SCH (07:29)
[2023-01-19] MEDS: Lisinopril 20 MG Tab PO SCH ×2 (07:29→19:43)
[2023-01-19 08:07] LABS: ALBUMIN 3.1 g/dL (3.4-5.0); BILIRUBIN TOTAL 0.7 mg/dL (0.0-1.0); CALCIUM 8.3 mg/dL (8.4-10.1); EST CRCL DRUG DOSING (CG) 104.31 mL/min; MAGNESIUM 1.6 mg/dL (1.8-2.4); POTASSIUM,K 4.3 mEq/L (3.5-5.0); PROTEIN TOTAL,TP 6.7 g/dL (6.4-8.2)
[2023-01-19] MEDS: Sodium Chloride 0.9% 1,000 ML IV SCH ×2 (09:00→19:26)
[2023-01-19] MEDS: LORazepam 2 MG/ML Syringe IVPUSH PRN ×2 (09:54→17:43)
[2023-01-19] MEDS: Aluminum Hydroxide/Magnesium Hydroxide/Simethicone Susp 30 ML Cup PO PRN (18:03)
[2023-01-19] MEDS: Enoxaparin 40 MG/0.4 ML Syringe SUBCUT SCH (19:42)
[2023-01-20] MEDS: LORazepam 2 MG/ML Syringe IVPUSH PRN ×2 (01:31→09:33)
[2023-01-20] MEDS: Sodium Chloride 0.9% 1,000 ML IV SCH (04:21)
[2023-01-20] MEDS: Pantoprazole 40 MG Tab.CR PO SCH (06:45)
[2023-01-20] MEDS: Levothyroxine 50 MCG Tab PO SCH (06:45)
[2023-01-20 07:28] LABS: BASOPHILS ABSOLUTE AUTO 0.03 10^3/uL (0.00-0.50); BASOPHILS PERCENT AUTO 0.9 % (0-1); EOSINOPHILS ABSOLUTE AUTO 0.08 10^3/uL (0.00-1.50); EOSINOPHILS PERCENT AUTO 2.5 % (0-6); HEMATOCRIT 39.7 % (42.0-52.0); IMMATURE GRAN ABSOLUTE AUTO 0.01 10^3/uL (0.00-0.49); IMMATURE GRAN PERCENT AUTO 0.3 % (0.0-4.9); LYMPHOCYTES ABSOLUTE AUTO 0.63 10^3/uL (0.60-5.00); LYMPHOCYTES PERCENT AUTO 19.3 % (24-44); MEAN CORPUSCULAR HEMOGLOBIN 32.3 pg (27.0-32.0); MEAN CORPUSCULAR HGB CONC 32.7 g/dL (32.0-36.0); MEAN CORPUSCULAR VOLUME 98.5 fL (83.0-97.0); MONOCYTES ABSOLUTE AUTO 0.26 10^3/uL (0.00-1.50); NEUTROPHILS ABSOLUTE AUTO 2.25 x10^3/uL (1.80-8.00); PLATELET COUNT,PLT 107 10^3/uL (150-400); RED BLOOD CELL COUNT 4.03 x10^6/uL (4.50-6.00); WHITE BLOOD CELL COUNT,WBC 3.3 10^3/uL (4.0-11.0)
[2023-01-20] MEDS: Citalopram 10 MG Tab PO SCH (07:56)
[2023-01-20] MEDS: Folic Acid 1 MG Tab PO SCH (07:56)
[2023-01-20] MEDS: amLODIPine 10 MG Tab PO SCH (07:56)
[2023-01-20] MEDS: Thiamine 100 MG Tab PO SCH (07:56)
[2023-01-20] MEDS: Loratadine 10 MG Tab PO SCH (07:57)
[2023-01-20] MEDS: Lisinopril 20 MG Tab PO SCH (07:57)
[2023-01-20] MEDS: Multivitamin Tab PO SCH (07:57)
[2023-01-20 08:24] LABS: ALBUMIN 3.1 g/dL (3.4-5.0); BILIRUBIN TOTAL 0.6 mg/dL (0.0-1.0); CALCIUM 8.5 mg/dL (8.4-10.1); CREATININE 0.9 mg/dL (0.7-1.3); EST CRCL DRUG DOSING (CG) 115.9 mL/min; MAGNESIUM 1.7 mg/dL (1.8-2.4); POTASSIUM,K 4.3 mEq/L (3.5-5.0); PROTEIN TOTAL,TP 6.8 g/dL (6.4-8.2)
[2023-01-20] MEDS: Aluminum Hydroxide/Magnesium Hydroxide/Simethicone Susp 30 ML Cup PO PRN (09:33)
[2023-01-23] MEDS ORDERED: Methotrexate 2.5 MG Tab PO SCH (09:00)
== END 2023-01-20 12:50 | disposition home or self-care (01) ==
LOC: CC.ED 10:25 → CC.MS 12:49 → UNDOADMOB 12:58
PROVIDERS: ADMIT Nurse Practitioner Family; ATTEND Nurse Practitioner Family
DX: F10.939 Alcohol use, unspecified with withdrawal, unspecified (principal); E83.42 Hypomagnesemia; F10.10 Alcohol abuse, uncomplicated; R10.84 Generalized abdominal pain; I10 Essential (primary) hypertension; M10.9 Gout, unspecified; M81.0 Age-related osteoporosis without current pathological fracture; E03.9 Hypothyroidism, unspecified; K21.9 Gastro-esophageal reflux disease without esophagitis; F41.9 Anxiety disorder, unspecified; K76.0 Fatty (change of) liver, not elsewhere classified; Z79.899 Other long term (current) drug therapy; Z79.890 Hormone replacement therapy; Z98.890 Other specified postprocedural states; Z88.0 Allergy status to penicillin
CPT/HCPCS: 36415; 74177; 80053; 80307; 81001; 83690; 83735; 85025; 86140; 96361; 96372; 96374; 96375; 96376; 99285-25; A9270-GY; G0378; J1650; J2060; J2405; J7030; Q9967

== ENCOUNTER 2023-01-22 12:32 | Emergency (ER) | payer MEDICAID ==
[2023-01-22 13:13] LABS: BASOPHILS ABSOLUTE AUTO 0.03 10^3/uL (0.00-0.50); BASOPHILS PERCENT AUTO 0.5 % (0-1); EOSINOPHILS ABSOLUTE AUTO 0.05 10^3/uL (0.00-1.50); EOSINOPHILS PERCENT AUTO 0.9 % (0-6); HEMATOCRIT 43.2 % (42.0-52.0); HEMOGLOBIN 14.3 g/dL (14.0-18.0); IMMATURE GRAN ABSOLUTE AUTO 0.02 10^3/uL (0.00-0.49); IMMATURE GRAN PERCENT AUTO 0.4 % (0.0-4.9); LYMPHOCYTES ABSOLUTE AUTO 0.64 10^3/uL (0.60-5.00); LYMPHOCYTES PERCENT AUTO 11.2 % (24-44); MEAN CORPUSCULAR HEMOGLOBIN 31.9 pg (27.0-32.0); MEAN CORPUSCULAR HGB CONC 33.1 g/dL (32.0-36.0); MEAN CORPUSCULAR VOLUME 96.4 fL (83.0-97.0); MONOCYTES ABSOLUTE AUTO 0.47 10^3/uL (0.00-1.50); MONOCYTES PERCENT AUTO 8.2 % (0-10); NEUTROPHILS ABSOLUTE AUTO 4.49 x10^3/uL (1.80-8.00); NEUTROPHILS PERCENT AUTO 78.8 % (41-71); PLATELET COUNT,PLT 126 10^3/uL (150-400); RED BLOOD CELL COUNT 4.48 x10^6/uL (4.50-6.00); WHITE BLOOD CELL COUNT,WBC 5.7 10^3/uL (4.0-11.0)
[2023-01-22 13:16] LABS: ALBUMIN 3.7 g/dL (3.4-5.0); CALCIUM 8.6 mg/dL (8.4-10.1); EST CRCL DRUG DOSING (CG) 52.16 mL/min
[2023-01-22 13:17] LABS: BILIRUBIN TOTAL 0.9 mg/dL (0.0-1.0); C-REACTIVE PROTEIN 1.4 mg/dL (0.2-0.8); MAGNESIUM 1.7 mg/dL (1.8-2.4); POTASSIUM,K 3.9 mEq/L (3.5-5.0); PROTEIN TOTAL,TP 7.8 g/dL (6.4-8.2)
[2023-01-22] MEDS ORDERED: Sodium Chloride 0.9% 1,000 ML IV ONE ×2 (13:26→14:35)
[2023-01-22] MEDS ORDERED: Alum Hydrox/Mag Hydrox/Simeth 30 ML, Lidocaine 2% 15 ML PO ONE ×2 (14:21)
== END 2023-01-22 15:46 | disposition home or self-care (01) ==
LOC: CC.ED 12:32
DX: R07.89 Other chest pain (principal); E86.0 Dehydration; I10 Essential (primary) hypertension; K21.9 Gastro-esophageal reflux disease without esophagitis; E03.9 Hypothyroidism, unspecified; Z88.0 Allergy status to penicillin; Z79.899 Other long term (current) drug therapy
CPT/HCPCS: 36415; 71046; 80053; 83735; 84484; 85025; 86140; 93005; 93010; 96360; 96361; 99284; 99285-25; A9270-GY; J7030

== ENCOUNTER 2023-02-07 18:58 | Observation (INO) | payer MEDICAID ==
[2023-02-07] MEDS ORDERED: Sodium Chloride 0.9% 1,000 ML IV ONE (19:21)
[2023-02-07 19:43] LABS: APPEARANCE,URINE CLEAR (CLEAR); BILIRUBIN,URINE SMALL (NEGATIVE); COLOR,URINE DARK YELLOW (YELLOW); GLUCOSE,URINE NEGATIVE (NEGATIVE); HEMATOCRIT 40.3 % (42.0-52.0); HEMOGLOBIN 13.6 g/dL (14.0-18.0); KETONES,URINE NEGATIVE (NEGATIVE); LEUKOCYTE ESTERASE,URINE NEGATIVE (NEGATIVE); MEAN CORPUSCULAR HEMOGLOBIN 32.2 pg (27.0-32.0); MEAN CORPUSCULAR HGB CONC 33.7 g/dL (32.0-36.0); MEAN CORPUSCULAR VOLUME 95.3 fL (83.0-97.0); MEAN PLATELET VOLUME 9.3 fL; NITRITE,URINE NEGATIVE (NEGATIVE); OCCULT BLOOD,URINE MODERATE (NEGATIVE); PLATELET COUNT,PLT 195 10^3/uL (150-400); PROTEIN,URINE TRACE mg/dL (NEGATIVE); RED BLOOD CELL COUNT 4.23 x10^6/uL (4.50-6.00); UROBILINOGEN,URINE 0.2 EU/dL (0.2-1.0)
[2023-02-07 19:55] LABS: ALBUMIN 3.3 g/dL (3.4-5.0); BILIRUBIN TOTAL 0.9 mg/dL (0.0-1.0); C-REACTIVE PROTEIN 1.3 mg/dL (0.2-0.8); CALCIUM 8.3 mg/dL (8.4-10.1); CREATININE 1.3 mg/dL (0.7-1.3); EST CRCL DRUG DOSING (CG) 80.24 mL/min; PROTEIN TOTAL,TP 6.9 g/dL (6.4-8.2)
[2023-02-07 19:59] LABS: HYALINE CASTS,URINE FEW /LPF (NOT SEEN); MUCUS,URINE MODERATE /HPF (NOT SEEN); WBC,URINE 0-5 /HPF (0-5)
[2023-02-07] MEDS ORDERED: Ondansetron 4 MG/2 ML SDV IVPUSH STA (20:06)
[2023-02-07] MEDS ORDERED: Iopamidol 755 Mg/ML 100 ML Bottle IVPUSH ONE ×2 (20:12→20:52)
[2023-02-07] MEDS: Potassium Chloride Riders 20 MEQ in Premix Bag 1 BAG IV SCH ×2 (20:30→22:52)
[2023-02-07] MEDS: Sodium Chloride 0.9% 1,000 ML IV SCH (20:33)
[2023-02-07] MEDS ORDERED: Aluminum Hydroxide/Magnesium Hydroxide/Simethicone Susp 30 ML Cup PO STA (21:26)
[2023-02-07] MEDS ORDERED: hydrOXYzine HCl 25 MG Tab PO PRN (21:44)
[2023-02-07] MEDS ORDERED: Ondansetron 4 MG Tab.DIS PO PRN (23:41)
[2023-02-07] MEDS ORDERED: Aluminum Hydroxide/Magnesium Hydroxide/Simethicone Susp 30 ML Cup PO PRN (23:41)
[2023-02-07] MEDS ORDERED: Acetaminophen 325 MG Tab PO PRN (23:41)
[2023-02-07] MEDS ORDERED: Ondansetron 4 MG/2 ML SDV IV PRN (23:41)
[2023-02-08] MEDS: Potassium Chloride Riders 20 MEQ in Premix Bag 1 BAG IV SCH (01:00)
[2023-02-08] MEDS: Sodium Chloride 0.9% 1,000 ML IV SCH (06:42)
[2023-02-08] MEDS ORDERED: amLODIPine 10 MG Tab PO SCH (08:00)
[2023-02-08] MEDS ORDERED: Loratadine 10 MG Tab PO SCH (08:00)
[2023-02-08] MEDS ORDERED: Levothyroxine 50 MCG Tab PO SCH (08:00)
[2023-02-08] MEDS ORDERED: Lisinopril 20 MG Tab PO SCH (08:00)
[2023-02-08] MEDS ORDERED: Citalopram 10 MG Tab PO SCH (08:00)
[2023-02-08 08:07] LABS: BASOPHILS ABSOLUTE AUTO 0.05 10^3/uL (0.00-0.50); EOSINOPHILS ABSOLUTE AUTO 0.18 10^3/uL (0.00-1.50); EOSINOPHILS PERCENT AUTO 3.7 % (0-6); HEMATOCRIT 39.5 % (42.0-52.0); IMMATURE GRAN ABSOLUTE AUTO 0.02 10^3/uL (0.00-0.49); IMMATURE GRAN PERCENT AUTO 0.4 % (0.0-4.9); LYMPHOCYTES ABSOLUTE AUTO 1.08 10^3/uL (0.60-5.00); LYMPHOCYTES PERCENT AUTO 22.3 % (24-44); MEAN CORPUSCULAR HEMOGLOBIN 32.3 pg (27.0-32.0); MEAN CORPUSCULAR HGB CONC 32.9 g/dL (32.0-36.0); MONOCYTES ABSOLUTE AUTO 0.29 10^3/uL (0.00-1.50); NEUTROPHILS ABSOLUTE AUTO 3.22 x10^3/uL (1.80-8.00); NEUTROPHILS PERCENT AUTO 66.6 % (41-71); PLATELET COUNT,PLT 172 10^3/uL (150-400); RED BLOOD CELL COUNT 4.03 x10^6/uL (4.50-6.00); WHITE BLOOD CELL COUNT,WBC 4.8 10^3/uL (4.0-11.0)
[2023-02-08 08:14] LABS: CALCIUM 8.4 mg/dL (8.4-10.1); CREATININE 1.1 mg/dL (0.7-1.3); EST CRCL DRUG DOSING (CG) 94.83 mL/min; POTASSIUM,K 4.1 mEq/L (3.5-5.0)
[2023-02-08] MEDS ORDERED: Enoxaparin 40 MG/0.4 ML Syringe SUBCUT SCH (20:00)
== END 2023-02-08 13:05 | disposition home or self-care (01) ==
LOC: CC.ED 18:58 → UNDOADMOB 21:26 → CC.MS 21:26
PROVIDERS: ADMIT Nurse Practitioner Family; ATTEND Nurse Practitioner Family
DX: R10.11 Right upper quadrant pain (principal); E87.6 Hypokalemia; I10 Essential (primary) hypertension; K21.9 Gastro-esophageal reflux disease without esophagitis; M10.9 Gout, unspecified; M19.90 Unspecified osteoarthritis, unspecified site; M81.0 Age-related osteoporosis without current pathological fracture; E03.9 Hypothyroidism, unspecified; F41.9 Anxiety disorder, unspecified; Z90.79 Acquired absence of other genital organ(s); Z98.890 Other specified postprocedural states; Z79.890 Hormone replacement therapy; Z79.899 Other long term (current) drug therapy; E66.01 Morbid (severe) obesity due to excess calories
CPT/HCPCS: 36415; 74177; 80048; 80053; 81001; 83735; 84484; 85025; 85027; 86140; 93005; 96361; 96365; 96366; 96375; 99285-25; A9270-GY; G0378; J2405; J3480; J7030; Q9967

== ENCOUNTER → 2023-03-03 | Day surgery (SDC) | payer MEDICAID ==
[~2023-03-03] MED LIST: Lactated Ringers 1,000 ML IV SCH; Lidocaine 2% 20 ML MDV ONE; Midazolam 1 MG/ML 2 ML SDV ONE; Propofol 200 MG/20 ML SDV ONE; fentaNYL 50 MCG/ML SDV ONE
== END ==
LOC: CC.SDS 10:58
PROVIDERS: ATTEND Family Medicine
DX: K29.80 Duodenitis without bleeding (principal); K29.50 Unspecified chronic gastritis without bleeding; K80.50 Calculus of bile duct without cholangitis or cholecystitis without obstruction; K82.8 Other specified diseases of gallbladder; F41.8 Other specified anxiety disorders; K21.9 Gastro-esophageal reflux disease without esophagitis; M10.9 Gout, unspecified; E03.9 Hypothyroidism, unspecified; I10 Essential (primary) hypertension; K85.90 Acute pancreatitis without necrosis or infection, unspecified; M06.9 Rheumatoid arthritis, unspecified; Z88.0 Allergy status to penicillin; Z79.899 Other long term (current) drug therapy; Z79.890 Hormone replacement therapy
CPT/HCPCS: 43239; 87081; J2250; J2704; J3010; J7120; 00731; J3490

== ENCOUNTER 2023-06-03 17:38 | Emergency (ER) | payer MEDICAID ==
[2023-06-03 17:57] LABS: BASOPHILS ABSOLUTE AUTO 0.03 10^3/uL (0.00-0.50); BASOPHILS PERCENT AUTO 0.5 % (0-1); EOSINOPHILS ABSOLUTE AUTO 0.05 10^3/uL (0.00-1.50); EOSINOPHILS PERCENT AUTO 0.9 % (0-6); HEMATOCRIT 39.1 % (42.0-52.0); HEMOGLOBIN 14.2 g/dL (14.0-18.0); IMMATURE GRAN ABSOLUTE AUTO 0.02 10^3/uL (0.00-0.49); IMMATURE GRAN PERCENT AUTO 0.4 % (0.0-4.9); LYMPHOCYTES ABSOLUTE AUTO 1.07 10^3/uL (0.60-5.00); LYMPHOCYTES PERCENT AUTO 19.1 % (24-44); MEAN CORPUSCULAR HEMOGLOBIN 32.8 pg (27.0-32.0); MEAN CORPUSCULAR HGB CONC 36.3 g/dL (32.0-36.0); MEAN CORPUSCULAR VOLUME 90.3 fL (83.0-97.0); MONOCYTES ABSOLUTE AUTO 0.45 10^3/uL (0.00-1.50); NEUTROPHILS ABSOLUTE AUTO 3.99 x10^3/uL (1.80-8.00); NEUTROPHILS PERCENT AUTO 71.1 % (41-71); PLATELET COUNT,PLT 130 10^3/uL (150-400); RED BLOOD CELL COUNT 4.33 x10^6/uL (4.50-6.00); WHITE BLOOD CELL COUNT,WBC 5.6 10^3/uL (4.0-11.0)
[2023-06-03 18:13] LABS: ALBUMIN 3.8 g/dL (3.4-5.0); BILIRUBIN TOTAL 0.6 mg/dL (0.0-1.0); CALCIUM 10.3 mg/dL (8.4-10.1); CREATININE 1.2 mg/dL (0.7-1.3); EST CRCL DRUG DOSING (CG) 86.93 mL/min; MAGNESIUM 1.2 mg/dL (1.8-2.4); POTASSIUM,K 3.5 mEq/L (3.5-5.0)
[2023-06-03 18:25] LABS: APPEARANCE,URINE CLEAR (CLEAR); BILIRUBIN,URINE NEGATIVE (NEGATIVE); COLOR,URINE YELLOW (YELLOW); GLUCOSE,URINE NEGATIVE (NEGATIVE); KETONES,URINE NEGATIVE (NEGATIVE); NITRITE,URINE NEGATIVE (NEGATIVE); OCCULT BLOOD,URINE TRACE-INTACT (NEGATIVE); PH,URINE 7.5 (4.5-8.0); PROTEIN,URINE TRACE mg/dL (NEGATIVE)
[2023-06-03 18:31] LABS: LEUKOCYTE ESTERASE,URINE NEGATIVE (NEGATIVE)
[2023-06-03 18:32] LABS: AMPHETAMINES,URINE NEGATIVE (NEGATIVE); BACTERIA,URINE NOT SEEN /HPF (NOT SEEN); BARBITURATES,URINE NEGATIVE (NEGATIVE); BENZODIAZEPINE,URINE NEGATIVE (NEGATIVE); EPITHELIAL CELLS,URINE NOT SEEN /HPF (NOT SEEN); MDMA (ECSTASY), URINE NEGATIVE (NEGATIVE); METHADONE,URINE NEGATIVE (NEGATIVE); METHAMPHETAMINES,URINE NEGATIVE (NEGATIVE); OPIATES,URINE NEGATIVE (NEGATIVE); OXYCODONE,URINE NEGATIVE (NEGATIVE); PHENCYCLIDINE,URINE NEGATIVE (NEGATIVE); RBC,URINE 0-5 /HPF (0-5); TCA,URINE NEGATIVE (NEGATIVE); WBC,URINE NOT SEEN /HPF (0-5)
[2023-06-03 18:33] LABS: MUCUS,URINE OCCASIONAL /HPF (NOT SEEN)
[2023-06-03] MEDS ORDERED: Iopamidol 755 Mg/ML 100 ML Bottle IVPUSH ONE (18:33)
[2023-06-03] MEDS ORDERED: Sodium Chloride 0.9% 1,000 ML IV ONE (18:37)
[2023-06-03] MEDS ORDERED: Aluminum Hydroxide/Magnesium Hydroxide/Simethicone Susp 30 ML Cup PO ONE (18:38)
[2023-06-03] MEDS ORDERED: Metoprolol Tartrate 5 MG/5 ML SDV IVPUSH ONE (18:38)
== END 2023-06-03 20:26 | disposition home or self-care (01) ==
LOC: CC.ED 17:38
DX: K70.0 Alcoholic fatty liver (principal); F10.20 Alcohol dependence, uncomplicated; R16.1 Splenomegaly, not elsewhere classified; E83.42 Hypomagnesemia; F19.10 Other psychoactive substance abuse, uncomplicated; I10 Essential (primary) hypertension; Y90.0 Blood alcohol level of less than 20 mg/100 ml; E03.9 Hypothyroidism, unspecified; M10.9 Gout, unspecified; K21.00 Gastro-esophageal reflux disease with esophagitis, without bleeding; Z88.0 Allergy status to penicillin; Z79.899 Other long term (current) drug therapy
CPT/HCPCS: 36415; 71046; 74177; 80053; 80305-QW; 80307; 81001; 83735; 84484; 85025; 93005; 93010; 96361; 96374; 99284; 99285-25; A9270-GY; J3490; J7030; Q9967